=== PATIENT | female | born 1950 | race Caucasian/White ===

== ENCOUNTER 2017-10-29 23:00 | Inpatient (IN) | payer MEDICARE ==
[2017-10-29] MEDS ORDERED: SODIUM CHLORIDE 0.9% 1,000 ML IV STA (23:18)
[2017-10-29] MEDS ORDERED: cefTRIAXone IN SWFI 2,000 MG/20 ML SYRINGE IVP STA (23:18)
[2017-10-29] MEDS ORDERED: IBUPROFEN 600 MG TAB PO STA (23:18)
--- NOTE | 2017-10-29 23:53 | XR ---
EXAMINATION TYPE: XR chest 2V DATE OF EXAM: 10/29/2017 COMPARISON: 07/12/2013 HISTORY: Fever TECHNIQUE: Frontal and lateral views of the chest are obtained. FINDINGS: Heart appears enlarged. There is no heart failure. Lungs are clear of infiltrate. There is no pleural effusion. Bony thorax appears intact. IMPRESSION: Mild cardiomegaly that appears increased compared to old exam. No heart failure.
[2017-10-29 23:56] LABS: Appearance,Urine Clear (Clear); Bacteria,Urine Rare /hpf; Bilirubin,Urine Negative (Negative); Blood,Urine Small (Negative); Color,Urine Light Yellow; Glucose,Urine (UA) 3+ (Negative); Ketones,Urine Negative (Negative); Leukocyte Esterase,Urine Negative (Negative); Mucus,Urine Rare /hpf; Nitrite,Urine Negative (Negative); PH, Urine 5.5 (5.0-8.0); Protein,Urine 2+ (Negative); RBC,Urine 4 /hpf (0-5); Specific Gravity,Urine 1.006 (1.001-1.035); Squamous Epithelial Cell,Urine <1 /hpf (0-4); Urobilinogen,Urine <2.0 mg/dL (<2.0); WBC,Urine 1 /hpf (0-5)
[2017-10-30 00:04] LABS: Albumin 3.4 g/dL (3.5-5.0); Potassium 5.2 mmol/L (3.5-5.1); Total Bilirubin 0.6 mg/dL (0.2-1.3); Total Protein 6.1 g/dL (6.3-8.2)
[2017-10-30 00:09] LABS: Basophils % (A) 0 %; Eosinophils # (A) 0.2 k/uL (0-0.7); Eosinophils % (A) 2 %; HCT 29.9 % (34.0-46.0); HGB 9.5 gm/dL (11.4-16.0); Lymphocytes # (A) 1.2 k/uL (1.0-4.8); Lymphocytes % (A) 14 %; MCH 28.7 pg (25.0-35.0); MCHC 31.8 g/dL (31.0-37.0); MCV 90.5 fL (80.0-100.0); Mean Platelet Volume 6.9; Monocytes # (A) 0.6 k/uL (0-1.0); Monocytes % (A) 7 %; Neutrophils # (A) 6.6 k/uL (1.3-7.7); Neutrophils % (A) 76 %; Platelet Count 241 k/uL (150-450); WBC 8.7 k/uL (3.8-10.6)
[2017-10-30] MEDS ORDERED: SODIUM CHLORIDE 0.9% 500 ML IV ONE (00:11)
--- NOTE | 2017-10-30 00:42 | ED ---
Fever HPI - General Chief Complaint: Fever Stated Complaint: fever Time Seen by Provider: 10/29/17 23:11 Source: patient, family Mode of arrival: ambulatory Limitations: no limitations - History of Present Illness Initial Comments: 89 years O female comes in with a fever and shortness of breath some cough and pain pain quite frequently she said she been going more frequent than usual she has a history of hypertension and diabetes and a fever going on for 2 to a half days night sweats generalized weakness. Denies any headache no neck stiffness no abdominal pain no frequency urgency dysuria no symptoms of TIA or CVA - Related Data Home Medications Medication Instructions Recorded Confirmed Albuterol Inhaler [Ventolin Hfa 2 puff INHALATION DIRECTED PRN 10/28/1510/29 Inhaler] Cyanocobalamin [Vitamin B-12 1,000 mcg SQ WEEKLY 10/28/15 10/29/17 Injection] Digoxin [Lanoxin] 250 mcg PO DAILY 10/28/15 10/29/17 Ergocalciferol [Vitamin D2] 50,000 unit PO Q7D 10/28/15 10/29/17 Ferrous Sulfate [Feosol] 325 mg PO DAILY 10/28/15 10/29/17 Fluticasone/Salmeterol [Advair 1 inhalation PO DIRECTED PRN 10/28/15 10/29/17 250-50 Diskus] Levothyroxine Sodium [Synthroid] 25 mcg PO DAILY 10/28/15 10/29/17 Lisinopril [Zestril] 10 mg PO DAILY 10/28/15 10/29/17 Metoprolol Tartrate [Lopressor] 25 mg PO BID 10/28/15 10/29/17 PARoxetine [Paxil] 20 mg PO DAILY 10/28/15 10/29/17 Pilocarpine [Salagen] 5 mg PO BID 10/28/15 10/29/17 glipiZIDE [Glucotrol] 5 mg PO AC-TID 10/28/15 10/29/17 metFORMIN HCL 1,000 mg PO BID 10/28/15 10/29/17 Allergies Allergy/AdvReac Type Severity Reaction Status Date / Time Penicillins Allergy Rash/Hives Verified 10/29/17 23:08 Review of Systems ROS Statement: Those systems with pertinent positive or pertinent negative responses have been documented in the HPI. ROS Other: All systems not noted in ROS Statement are negative. Past Medical History Past Medical History: Asthma, Diabetes Mellitus, Hypertension, Mitral Valve Prolapse (MVP), Osteoarthritis (OA), Supraventricular Tachycardia (SVT), Thyroid Disorder Additional Past Medical History / Comment(s): diarrhea, anemia, sjogrens, History of Any Multi-Drug Resistant Organisms: None Reported Past Surgical History: Cholecystectomy, Heart Catheterization, Orthopedic Surgery, Tonsillectomy Additional Past Surgical History / Comment(s): rt knee surgery Past Anesthesia/Blood Transfusion Reactions: No Reported Reaction Past Psychological History: Anxiety Smoking Status: Never smoker Past Alcohol Use History: None Reported Past Drug Use History: None Reported - Past Family History Mother Family Medical History: Cancer Brother(s) Family Medical History: Pulmonary Embolus General Exam - General Exam Comments Initial Comments: General: The patient is awake and alert, in no distress does look pale and tired Skin: Skin is warm and dry and no rashes or lesions are noted. Eye: Pupils are equal, round and reactive to light, extra-ocular movements are intact; there is normal conjunctiva bilaterally. Ears, nose, mouth and throat: There are moist mucous membranes and no oral lesions. Neck: The neck is supple, there is no tenderness or JVD. Cardiovascular: There is a regular rate and rhythm. No murmur, rub or gallop is appreciated. Respiratory: To auscultation bilateral, recent crackles at the bases Gastrointestinal: Soft, non-distended, non-tender abdomen without masses or organomegaly noted. There is no rebound or guarding present. Bowel sounds are unremarkable. Back: There is no tenderness to palpation in the midline. There is no obvious deformity. Musculoskeletal: Normal ROM, no tenderness, There is no pedal edema. There is no calf tenderness or swelling. No cords were appreciated. Neurological: CN II-XII intact, Cranial nerves III through XII are intact. There are no obvious motor or sensory deficits. Coordination appears grossly intact. Speech is normal. Psychiatric: Cooperative, appropriate mood & affect, normal judgment. Limitations: no limitations Course Vital Signs 10/29/17 10/30/17 23:03 00:49 Temperature 102.3 F H 101.4 F H Pulse Rate 83 70 Respiratory 20 18 Rate Blood Pressure 182/74 178/77 O2 Sat by Pulse 95 98 Oximetry Medical Decision Making - Lab Data Result diagrams: 10/29/17 23:40 07/21/18 23:40 Lab Results 10/29/17 10/29/17 10/29/17 Range/Units 23:40 23:40 23:40 WBC 8.7 (3.8-10.6) k/uL RBC 3.30 L (3.80-5.40) m/uL Hgb 9.5 L (11.4-16.0) gm/dL Hct 29.9 L (34.0-46.0) % MCV 90.5 (80.0-100.0) fL MCH 28.7 (25.0-35.0) pg MCHC 31.8 (31.0-37.0) g/dL RDW 14.0 (11.5-15.5) % Plt Count 241 (150-450) k/uL Neutrophils % 76 % Lymphocytes % 14 % Monocytes % 7 % Eosinophils % 2 % Basophils % 0 % Neutrophils # 6.6 (1.3-7.7) k/uL Lymphocytes # 1.2 (1.0-4.8) k/uL Monocytes # 0.6 (0-1.0) k/uL Eosinophils # 0.2 (0-0.7) k/uL Basophils # 0.0 (0-0.2) k/uL Sodium 131 L (137-145) mmol/L Potassium 5.2 H (3.5-5.1) mmol/L Chloride 106 (98-107) mmol/L Carbon Dioxide 17 L (22-30) mmol/L Anion Gap 8 mmol/L BUN 18 H (7-17) mg/dL Creatinine 1.40 H (0.52-1.04) mg/dL Est GFR (CKD-EPI)AfAm 45 (>60 ml/min/1.73 sqM) Est GFR (CKD-EPI)NonAf 39 (>60 ml/min/1.73 sqM) Glucose 313 H (74-99) mg/dL Plasma Lactic Acid Jose F (0.7-2.0) mmol/L Calcium 9.0 (8.4-10.2) mg/dL Total Bilirubin 0.6 (0.2-1.3) mg/dL AST 24 (14-36) U/L ALT 25 (9-52) U/L Alkaline Phosphatase 56 (38-126) U/L Total Protein 6.1 L (6.3-8.2) g/dL Albumin 3.4 L (3.5-5.0) g/dL Urine Color Urine Appearance (Clear) Urine pH (5.0-8.0) Ur Specific [place] (1.001-1.035) Urine Protein (Negative) Urine Glucose (UA) (Negative) Urine Ketones (Negative) Urine Blood (Negative) Urine Nitrite (Negative) Urine Bilirubin (Negative) Urine Urobilinogen (<2.0) mg/dL Ur Leukocyte Esterase (Negative) Urine RBC (0-5) /hpf Urine WBC (0-5) /hpf Ur Squamous Epith Cells (0-4) /hpf Urine Bacteria (None) /hpf Urine Mucus (None) /hpf Influenza Type A RNA Not Detected (Not Detectd) Influenza Type B (PCR) Not Detected (Not Detectd) 10/29/17 10/29/17 Range/Units 23:40 23:40 WBC (3.8-10.6) k/uL RBC (3.80-5.40) m/uL Hgb (11.4-16.0) gm/dL Hct (34.0-46.0) % MCV (80.0-100.0) fL MCH (25.0-35.0) pg MCHC (31.0-37.0) g/dL RDW (11.5-15.5) % Plt Count (150-450) k/uL Neutrophils % % Lymphocytes % % Monocytes % % Eosinophils % % Basophils % % Neutrophils # (1.3-7.7) k/uL Lymphocytes # (1.0-4.8) k/uL Monocytes # (0-1.0) k/uL Eosinophils # (0-0.7) k/uL Basophils # (0-0.2) k/uL Sodium (137-145) mmol/L Potassium (3.5-5.1) mmol/L Chloride (98-107) mmol/L Carbon Dioxide (22-30) mmol/L Anion Gap mmol/L BUN (7-17) mg/dL Creatinine (0.52-1.04) mg/dL Est GFR (CKD-EPI)AfAm (>60 ml/min/1.73 sqM) Est GFR (CKD-EPI)NonAf (>60 ml/min/1.73 sqM) Glucose (74-99) mg/dL Plasma Lactic Acid Jose F 2.3 H* (0.7-2.0) mmol/L Calcium (8.4-10.2) mg/dL Total Bilirubin (0.2-1.3) mg/dL AST (14-36) U/L ALT (9-52) U/L Alkaline Phosphatase (38-126) U/L Total Protein (6.3-8.2) g/dL Albumin (3.5-5.0) g/dL Urine Color Light Yellow Urine Appearance Clear (Clear) Urine pH 5.5 (5.0-8.0) Ur Specific [place] 1.006 (1.001-1.035) Urine Protein 2+ H (Negative) Urine Glucose (UA) 3+ H (Negative) Urine Ketones Negative (Negative) Urine Blood Small H (Negative) Urine Nitrite Negative (Negative) Urine Bilirubin Negative (Negative) Urine Urobilinogen <2.0 (<2.0) mg/dL Ur Leukocyte Esterase Negative (Negative) Urine RBC 4 (0-5) /hpf Urine WBC 1 (0-5) /hpf Ur Squamous Epith Cells <1 (0-4) /hpf Urine Bacteria Rare H (None) /hpf Urine Mucus Rare H (None) /hpf Influenza Type A RNA (Not Detectd) Influenza Type B (PCR) (Not Detectd) Critical Care Time Total Critical Care Time: 30 Critical Care Time: Plan reassessment noticed quite a few subtle things she had a fever for last 2-1 /2 days she had the diaphoresis and feeling weak fever was 102.3 CBC was fine potassium is 5.2 lactate is 2.3 and sugar is above 300 and a CO2 is 17 that's sort of firm translates into metabolic acidosis and with a lactate being 2.3 also points out towards dehydration and lactic acidosis she be getting some broad-spectrum antibiotics blood cultures urine cultures sent and chest x-ray showed some cardiomegaly considering that the fluid and dehydration sugar to be a moderate right now, very aggressive monofilament pressure into congestive heart failure she be admitted under Dr. Mederos's service and she had a 2 g of Rocephin and we'll change that to Zosyn and the metabolic acidosis is a borderline him not to start her on some insulin infusion instead she be getting fluids and subcu insulin at this point clinically she looks very good at this point I don't think she needs infusion of insulin Disposition Clinical Impression: Metabolic acidosis, Hyperglycemia, Fever, Bacteremia Disposition: ADMITTED IP TO THIS [facility] Condition: Good Referrals: Zainab Zuleta DO [Primary Care Provider] - 1-2 days
[2017-10-30] MEDS ORDERED: INSULIN REGULAR 100 UNIT/ML VIAL SQ ONE (00:44)
[2017-10-30] MEDS ORDERED: ONDANSETRON 4 MG/2 ML VIAL IVP PRN (00:58)
[2017-10-30] MEDS ORDERED: NALOXONE 0.4 MG/ML 1 ML VIAL IV PRN (00:58)
[2017-10-30] MEDS ORDERED: ALBUTEROL NEBULIZED 2.5 MG/3 ML INHALATION PRN ×2 (01:02→13:01)
[2017-10-30] MEDS ORDERED: SYMBICORT 80-4.5 MCG INHALER INHALATION PRN (01:02)
[2017-10-30] MEDS ORDERED: LEVOFLOXACIN 500 MG TAB PO STA (01:04)
[2017-10-30 01:09] LABS: Glucose,Whole Blood 251 mg/dL (75-99)
[2017-10-30] MEDS: SODIUM CHLORIDE 0.9% 1,000 ML IV SCH ×4 (01:13→23:08)
[2017-10-30 01:26] LABS: VBG PH 7.27 (7.31-7.41)
[2017-10-30 04:19] VITALS: BMI 38.6
[2017-10-30] MEDS: LEVOTHYROXINE 25 MCG TAB PO SCH (05:44)
[2017-10-30 07:43] LABS: Glucose,Whole Blood 99 mg/dL (75-99)
[2017-10-30] MEDS: PARoxetine 20 MG TAB PO SCH (08:28)
[2017-10-30] MEDS: DIGOXIN 250 MCG TAB PO SCH (08:28)
[2017-10-30] MEDS: glipiZIDE 5 MG TAB PO SCH ×2 (08:29→12:44)
[2017-10-30] MEDS: METOPROLOL TARTRATE 25 MG TAB PO SCH ×2 (08:29→21:28)
[2017-10-30] MEDS ORDERED: FERROUS SULFATE 325 MG TAB PO SCH (09:00)
[2017-10-30] MEDS ORDERED: LISINOPRIL 10 MG TAB PO SCH (09:00)
[2017-10-30] MEDS ORDERED: PILOCARPINE 5 MG TAB PO SCH (09:00)
[2017-10-30] MEDS ORDERED: metFORMIN 500 MG TAB PO SCH (09:00)
--- NOTE | 2017-10-30 10:09 | P.HPIM ---
History of Present Illness H&P Date: 10/30/17 Chief Complaint: Febrile illness Amelia Underwood is a 67-year-old female patient of Dr. Zainab Zuleta who presented to [facility] emergency room with a 2 day history of elevated temperature, with generalized weakness and sweating, patient states that 2 days prior to presentation she had a temperature up to 103 she took Tylenol at home and had improvement in her condition, however fever recurred and patient was having generalized weakness and sweating, no other localized symptoms, no cough or shortness of breath, no burning was urination no frequency or urgency, no hematuria, and no abdominal pain no vomiting and no diarrhea. She was evaluated in the emergency room, temperature on presentation was 102.3 white blood count was normal at 8.7 chest x-ray did not reveal any evidence of acute infiltrate, urine analysis revealed 1 white blood cell with rare bacteria and urine mucus. She was started on IV antibiotic Rocephin and Levaquin and was admitted to medical floor. On presentation to emergency room patient had metabolic acidosis was pH of 7.27. Patient was seen and examined on the fifth floor she is alert and oriented 3 she is feeling tired but denies any specific symptoms at this time, temperature is down to 98.5 she denies any cough or shortness of breath she denies any chest pain no headache no dizziness no stiff neck no nausea or vomiting no abdominal pain, she is having frequency was urination but no burning with urination and no urgency, she denies any diarrhea, she is complaining of left knee pain, denies any skin ulcers anywhere on her body. Past medical history significant for #1 history of osteoarthritis with severe left knee involvement #2 history of diabetes mellitus type 2 #3 history of myelodysplasia followed by Dr. Ayoub, she has blood test every 3 months and has not required transfusion so far per patient #4 history of hypothyroidism #5 history of hypertension #6 history of mitral valve prolapse #7 history of aortic valve stenosis patient is followed by cardiology and sees Dr. Lira #8 history of depression maintained on Paxil Past surgical history: Significant for tonsillectomy and right knee surgery in the remote past Social history: Patient lives at home she is able to ambulate and take care of her daily needs, she does not smoke or drink alcohol or use any kind of illicit drugs. Past Medical History Past Medical History: Asthma, Diabetes Mellitus, Hypertension, Mitral Valve Prolapse (MVP), Osteoarthritis (OA), Supraventricular Tachycardia (SVT), Thyroid Disorder Additional Past Medical History / Comment(s): diarrhea, anemia, sjogrens, History of Any Multi-Drug Resistant Organisms: None Reported Past Surgical History: Cholecystectomy, Heart Catheterization, Orthopedic Surgery, Tonsillectomy Additional Past Surgical History / Comment(s): rt knee surgery Past Anesthesia/Blood Transfusion Reactions: No Reported Reaction Smoking Status: Never smoker - Past Family History Mother Family Medical History: Cancer Brother(s) Family Medical History: Pulmonary Embolus Medications and Allergies Home Medications Medication Instructions Recorded Confirmed Type Albuterol Inhaler [Ventolin Hfa 2 puff INHALATION DIRECTED PRN 10/28/1510/29 History Inhaler] Cyanocobalamin [Vitamin B-12 1,000 mcg SQ WEEKLY 10/28/15 10/29/17 History Injection] Digoxin [Lanoxin] 250 mcg PO DAILY 10/28/15 10/29/17 History Ergocalciferol [Vitamin D2] 50,000 unit PO Q7D 10/28/15 10/29/17 History Ferrous Sulfate [Feosol] 325 mg PO DAILY 10/28/15 10/29/17 History Fluticasone/Salmeterol [Advair 1 inhalation PO DIRECTED PRN 10/28/15 History 250-50 Diskus] Levothyroxine Sodium [Synthroid] 25 mcg PO DAILY 10/28/15 10/29/17 History Lisinopril [Zestril] 10 mg PO DAILY 10/28/15 10/29/17 History Metoprolol Tartrate [Lopressor] 25 mg PO BID 10/28/15 10/29/17 History PARoxetine [Paxil] 20 mg PO DAILY 10/28/15 10/29/17 History Pilocarpine [Salagen] 5 mg PO BID 10/28/15 10/29/17 History glipiZIDE [Glucotrol] 5 mg PO AC-TID 10/28/15 10/29/17 History metFORMIN HCL 1,000 mg PO BID 10/28/15 10/29/17 History Allergies Allergy/AdvReac Type Severity Reaction Status Date / Time Penicillins Allergy Rash/Hives Verified 10/29/17 23:08 Physical Exam Vitals: Vital Signs Temp Pulse Pulse Resp BP BP Pulse Ox 10/30/17 08:54 90 10/30/17 08:44 88 10/30/17 06:08 98.5 F 71 20 176/79 97 10/30/17 02:03 100.5 F H 73 18 166/81 96 10/30/17 00:49 101.4 F H 70 18 178/77 98 10/29/17 23:03 102.3 F H 83 20 182/74 95 Intake and Output 10/29/17 10/30/17 10/30/17 22:59 06:59 14:59 Other: # Voids 2 Weight 102.058 kg HEENT head normocephalic and atraumatic Neck is supple no JVD no goiter no lymphadenopathy Chest exam reveals a few scattered rhonchi no wheezing Cardiac exam reveals regular heart sounds S1 and S2 no gallops, with 2/6 systolic murmur best heard in the right base Abdomen is soft nontender no organomegaly with normal bowel sounds Extremity exam reveals no edema no cyanosis or clubbing Neurological examination reveals no gross focal deficits Results CBC & Chem 7: 10/29/17 23:40 10/29/17 23:40 Labs: Abnormal Lab Results - Last 24 Hours (Table) 10/29/17 10/29/17 10/29/17 Range/Units 23:40 23:40 23:40 RBC 3.30 L (3.80-5.40) m/uL Hgb 9.5 L (11.4-16.0) gm/dL Hct 29.9 L (34.0-46.0) % VBG pH (7.31-7.41) VBG HCO3 (24-28) mmol/L Sodium 131 L (137-145) mmol/L Potassium 5.2 H (3.5-5.1) mmol/L Carbon Dioxide 17 L (22-30) mmol/L BUN 18 H (7-17) mg/dL Creatinine 1.40 H (0.52-1.04) mg/dL Glucose 313 H (74-99) mg/dL POC Glucose (mg/dL) (75-99) mg/dL Plasma Lactic Acid Jose F 2.3 H* (0.7-2.0) mmol/L Total Protein 6.1 L (6.3-8.2) g/dL Albumin 3.4 L (3.5-5.0) g/dL Urine Protein (Negative) Urine Glucose (UA) (Negative) Urine Blood (Negative) Urine Bacteria (None) /hpf Urine Mucus (None) /hpf 10/29/17 10/30/17 10/30/17 Range/Units 23:40 01:06 01:17 RBC (3.80-5.40) m/uL Hgb (11.4-16.0) gm/dL Hct (34.0-46.0) % VBG pH (7.31-7.41) VBG HCO3 (24-28) mmol/L Sodium (137-145) mmol/L Potassium (3.5-5.1) mmol/L Carbon Dioxide (22-30) mmol/L BUN (7-17) mg/dL Creatinine (0.52-1.04) mg/dL Glucose (74-99) mg/dL POC Glucose (mg/dL) 251 H (75-99) mg/dL Plasma Lactic Acid Jose F 2.2 H* (0.7-2.0) mmol/L Total Protein (6.3-8.2) g/dL Albumin (3.5-5.0) g/dL Urine Protein 2+ H (Negative) Urine Glucose (UA) 3+ H (Negative) Urine Blood Small H (Negative) Urine Bacteria Rare H (None) /hpf Urine Mucus Rare H (None) /hpf 10/30/17 10/30/17 Range/Units 01:17 03:18 RBC (3.80-5.40) m/uL Hgb (11.4-16.0) gm/dL Hct (34.0-46.0) % VBG pH 7.27 L (7.31-7.41) VBG HCO3 18 L (24-28) mmol/L Sodium (137-145) mmol/L Potassium (3.5-5.1) mmol/L Carbon Dioxide (22-30) mmol/L BUN (7-17) mg/dL Creatinine (0.52-1.04) mg/dL Glucose (74-99) mg/dL POC Glucose (mg/dL) (75-99) mg/dL Plasma Lactic Acid Jose F 2.2 H* (0.7-2.0) mmol/L Total Protein (6.3-8.2) g/dL Albumin (3.5-5.0) g/dL Urine Protein (Negative) Urine Glucose (UA) (Negative) Urine Blood (Negative) Urine Bacteria (None) /hpf Urine Mucus (None) /hpf Thrombosis Risk Factor Assmnt - Choose All That Apply Any of the Below Risk Factors Present?: Yes Each Factor Represents 1 point: Obesity (BMI >25) Other Risk Factors: Yes Each Risk Factor Represents 2 Points: Age 61-74 years Thrombosis Risk Factor Assessment Total Risk Factor Score: 3 Thrombosis Risk Factor Assessment Level: Moderate Risk Assessment and Plan Plan: #1 febrile illness was possible sepsis, blood culture and urine culture were done, patient was started on IV Rocephin and IV Levaquin will continue at this time, awaiting culture results, will consult Dr. Merritt infectious disease. Will check echocardiogram to rule out vegetation in [place] of her known valvular heart disease. #2 underlying history of diabetes mellitus, will continue with glipizide, which was hold metformin at this time, will check hemoglobin A1c, will cover with NovoLog sliding scale. #3 sepsis with elevated temperature and elevated lactic acid received IV fluid Will continue with normal saline at 100 mL an hour #4 underlying history of hypertension maintained on lisinopril and metoprolol, blood pressure was significantly elevated on presentation will monitor and adjust medications if needed #5 underlying history of myelodysplasia, followed by Dr Ayoub #6 underlying history of hypothyroidism maintained on Synthroid 25 g daily Will check TSH #7 underlying history of depression maintained on Paxil will continue #8 metabolic acidosis on presentation will recheck arterial blood gas and monitor closely For GI prophylaxis patient will be given Protonix for DVT prophylaxis she will receive subcu Lovenox
[2017-10-30 10:27] LABS: Basophils % (A) 0 %; Eosinophils # (A) 0.1 k/uL (0-0.7); Eosinophils % (A) 2 %; HCT 28.8 % (34.0-46.0); HGB 9.3 gm/dL (11.4-16.0); Hypochromasia Slight; Lymphocytes # (A) 0.9 k/uL (1.0-4.8); Lymphocytes % (A) 11 %; MCH 29.5 pg (25.0-35.0); MCHC 32.1 g/dL (31.0-37.0); MCV 91.8 fL (80.0-100.0); Mean Platelet Volume 6.6; Monocytes # (A) 0.5 k/uL (0-1.0); Monocytes % (A) 6 %; Neutrophils # (A) 6.4 k/uL (1.3-7.7); Neutrophils % (A) 79 %; Platelet Count 234 k/uL (150-450); RBC 3.14 m/uL (3.80-5.40)
[2017-10-30 10:49] LABS: Albumin 3.1 g/dL (3.5-5.0); Calcium 8.7 mg/dL (8.4-10.2); Potassium 4.9 mmol/L (3.5-5.1); Total Bilirubin 0.6 mg/dL (0.2-1.3); Total Protein 5.5 g/dL (6.3-8.2)
[2017-10-30] MEDS ORDERED: cefTRIAXone IN SWFI 1,000 MG/10 ML SYRINGE IVP SCH (11:00)
[2017-10-30] MEDS: ENOXAPARIN 40 MG/0.4 ML SYRINGE SQ SCH (11:16)
[2017-10-30] MEDS: ACETAMINOPHEN TAB 325 MG TAB PO PRN (11:21)
[2017-10-30 12:24] LABS: Glucose,Whole Blood 212 mg/dL (75-99)
[2017-10-30 12:47] LABS: ABG Base Excess -6.6 mmol/L; ABG HCO3 19 mmol/L (21-25); ABG Oxygen Saturation 96.5 % (94-97); ABG PCO2 33 mmHg (35-45); ABG PH 7.36 (7.35-7.45); ABG PO2 76 mmHg (83-108); ABG TCO2 20 mmol/L (19-24)
[2017-10-30] MEDS ORDERED: IBUPROFEN 600 MG TAB PO PRN (13:11)
[2017-10-30] MEDS: INSULIN ASPART 100 UNIT/ML 1 ML 10 ML VIAL SQ SCH ×3 (13:13→21:25)
[2017-10-30] MEDS ORDERED: INSULIN ASPART 100 UNIT/ML 1 ML 10 ML VIAL SQ SCH (17:30)
[2017-10-30 17:34] LABS: Glucose,Whole Blood 150 mg/dL (75-99)
--- NOTE | 2017-10-30 20:01 | CONS ---
CONSULTATION DATE OF SERVICE: 10/30/2017. REASON FOR CONSULTATION: Fever and possible pneumonia. HISTORY OF PRESENT ILLNESS: The patient is a 67-year-old female with a past medical history significant for asthma, presenting to the ER at [facility] last night with chief complaints of fever x2 days. The symptoms started the patient says she went to bed on night and she was doing okay. However around 3 in the morning on Tuesday. She started having a fever with rigors and chills, temperature 103 degrees Fahrenheit. The patient said she took some Tylenol and took a cold shower to break the fever. She lied down the whole day not doing anything. However, the fever persisted the next day. The patient has been complaining of mild cough with some thick sputum for the same duration. The patient denies having any headache or any URI symptoms. Minimal shortness of breath. The patient denies any abdominal pain and no diarrhea. With these symptoms, the patient has been evaluated by the ER physician. On arrival to the ER, the patient did have fever of 102.3 degrees Fahrenheit. The patient's white count has been normal. Liver enzymes are normal. Lactic acid slightly elevated 2.2. Urine has been negative. Influenza serology was negative. The patient did have a chest x- ray, mild cardiomegaly to oral exam. Lungs were clear of infiltrate. The patient has been treated with Rocephin and Levaquin. Infectious disease was consulted for further recommendations regarding antibiotic therapy. REVIEW OF SYSTEMS: Constitutional: Positive for weakness along with the fever. Eyes: No complaint. ENT no complaint. Respiratory as per HPI. Cardiovascular: No complaint. Genitourinary no complaint. Gastrointestinal: No complaint. Musculoskeletal: Pain to the left knee area, but no redness. INTEGUMENT: No complaint. Psychological no complaint. Endocrine no complaint. Neurologic no complaint. PAST MEDICAL HISTORY: Significant for diabetes mellitus type 2, myelodysplasia, hypothyroidism, hypertension, mitral valve prolapse, aortic valve stenosis, depression. PAST SURGICAL HISTORY: Tonsillectomy and right knee surgery. SOCIAL HISTORY: The patient denies smoking, drinking or drug use. FAMILY HISTORY: Mother with history of cancer. Father history of pulmonary embolism. ALLERGIES: PENICILLIN with a rash, however, tolerated Rocephin without any problem. MEDICATION: Currently includes the patient is on Paxil, Protonix, Zofran, Narcan, Lopressor, Zestril, Synthroid, Levaquin, NovoLog, Motrin, Glucotrol, Lovenox, Rocephin 1 g q.12, Symbicort, Tylenol. EXAMINATION: Blood pressure 176/79 with a pulse of 71, temperature is 98.5, she is 97% on room air. General description is an elderly female, lying in bed in no distress. No tachypnea or accessory muscles of respiration use. HEENT: Examination shows no pallor or scleral icterus. Oral mucosa membranes dry. No pharyngeal erythema or thrush. Neck: Trachea central. No thyromegaly. Lungs unlabored breathing with decreased breath sounds. No wheeze. Heart S1, S2 regular rate and rhythm. ABDOMEN: Soft, no tenderness. No guarding or rigidity. Extremities trace edema of the feet. No cellulitis. Musculoskeletal system: Left knee currently with no swelling or redness, only warm to touch. Neurological: Patient is awake, alert, oriented times three. Mood and affect normal. LABS: Influenza serology was negative. Hemoglobin 9.8, white count 8.0, BUN of 15, hematocrit 1.2, electrolytes have been normal. Liver enzymes are normal. Lactic acid is slightly elevated. Urine is negative. DIAGNOSTIC IMPRESSION AND PLAN: Patient admitted to the hospital with a fever, rigors and chills. The patient does have a cough and bringing up some thick sputum with question of early pneumonia not entirely excluded with initial x-ray reported to be negative. UA is negative. No evidence of any cellulitis. Abdomen soft on clinical examination. PLAN: 1. We will try to obtain sputum for Gram stain culture and sensitivity. 2. Await the repeat x-ray be ordered for tomorrow morning. 3. We will keep the patient on Rocephin however change the dose to 1 g daily and continue Levaquin. 4. We will follow her clinical condition and culture to further adjust medication if needed. Thank you for this consultation. We will follow this patient along with you. MMSORENL / VARGHESEN: [id number] /
[2017-10-30 20:14] LABS: Glucose,Whole Blood 175 mg/dL (75-99)
[2017-10-30] MEDS ORDERED: LEVOFLOXACIN 500MG-D5W PMX 500 MG in DEXTROSE/WATER 1 100ML.BAG IVPB SCH (21:00)
[2017-10-30] MEDS: PILOCARPINE 5 MG TAB PO SCH (21:28)
[2017-10-30] MEDS ORDERED: amLODIPine 5 MG TAB PO STA (21:46)
[2017-10-31] MEDS: LEVOTHYROXINE 25 MCG TAB PO SCH (06:23)
[2017-10-31 06:55] LABS: Glucose,Whole Blood 128 mg/dL (75-99)
[2017-10-31 07:21] LABS: Basophils % (A) 0 %; Eosinophils # (A) 0.2 k/uL (0-0.7); Eosinophils % (A) 3 %; HGB 9.1 gm/dL (11.4-16.0); Lymphocytes # (A) 1.5 k/uL (1.0-4.8); Lymphocytes % (A) 17 %; MCH 29.3 pg (25.0-35.0); MCHC 32.5 g/dL (31.0-37.0); MCV 90.2 fL (80.0-100.0); Mean Platelet Volume 6.6; Monocytes # (A) 0.6 k/uL (0-1.0); Monocytes % (A) 7 %; Neutrophils # (A) 6.4 k/uL (1.3-7.7); Neutrophils % (A) 72 %; Platelet Count 244 k/uL (150-450); RBC 3.11 m/uL (3.80-5.40); WBC 8.9 k/uL (3.8-10.6)
[2017-10-31] MEDS: INSULIN ASPART 100 UNIT/ML 1 ML 10 ML VIAL SQ SCH ×4 (07:27→21:15)
[2017-10-31 07:36] LABS: Albumin 3.1 g/dL (3.5-5.0); Calcium 9.1 mg/dL (8.4-10.2); Potassium 4.5 mmol/L (3.5-5.1); Total Bilirubin 0.8 mg/dL (0.2-1.3); Total Protein 5.8 g/dL (6.3-8.2)
[2017-10-31] MEDS: METOPROLOL TARTRATE 25 MG TAB PO SCH ×2 (08:08→21:16)
[2017-10-31] MEDS: ENOXAPARIN 40 MG/0.4 ML SYRINGE SQ SCH (08:08)
[2017-10-31] MEDS: LISINOPRIL 20 MG TAB PO SCH (08:08)
[2017-10-31] MEDS: amLODIPine 5 MG TAB PO SCH (08:08)
[2017-10-31] MEDS: PANTOPRAZOLE 40 MG TABLET PO SCH (08:08)
[2017-10-31] MEDS: PILOCARPINE 5 MG TAB PO SCH ×2 (08:08→21:16)
[2017-10-31] MEDS: DIGOXIN 250 MCG TAB PO SCH (08:08)
[2017-10-31] MEDS: glipiZIDE 10 MG TAB PO SCH (08:08)
[2017-10-31] MEDS: PARoxetine 20 MG TAB PO SCH (08:09)
--- NOTE | 2017-10-31 08:41 | XR ---
EXAMINATION TYPE: XR chest 2V DATE OF EXAM: 10/31/2017 COMPARISON: 10/29/2017 TECHNIQUE: PA and lateral views submitted. HISTORY: Fever FINDINGS: The lungs are clear and there is no pneumothorax, pleural effusion, or focal pneumonia. Stable card iomegaly. Surgical clips in the abdomen noted. Degenerative change spine IMPRESSION: 1. No acute process.
[2017-10-31 10:53] LABS: Hemoglobin A1C 10.2 % (4.0-6.0)
--- NOTE | 2017-10-31 11:00 | ECHOF ---
Referral Reason:fever MEASUREMENTS -------- HEIGHT: 162.6 cm WEIGHT: 102.1 kg BP: 146/79 RVIDd: 3.2 cm (< 3.3) IVSd: 1.4 cm (0.6 - 1.1) LVIDd: 4.5 cm (3.9 - 5.3) LVPWd: 1.3 cm (0.6 - 1.1) IVSs: 1.7 cm LVIDs: 2.9 cm LVPWs: 1.6 cm LA Diam: 4.2 cm (2.7 - 3.8) LAESV Index (A-L): 35.22 ml/m Ao Diam: 2.8 cm (2.0 - 3.7) AV Cusp: 1.8 cm (1.5 - 2.6) LA Diam: 4.4 cm (2.7 - 3.8) MV EXCURSION: 12.148 mm (> 18.000) MV EF SLOPE: 44 mm/s (70 - 150) EPSS: 0.1 cm MV E Hector: 0.79 m/s MV DecT: 289 ms MV A Hector: 1.54 m/s MV E/A Ratio: 0.51 AV maxP.76 mmHg AV meanP.97 mmHg RAP: 5.00 mmHg RVSP: 29.15 mmHg FINDINGS -------- Sinus rhythm. This was a technically adequate study. The left ventricular size is normal. There is moderate concentric left ventricular hypertrophy. O verall left ventricular systolic function is low-normal with, an EF between 50 - 55 %. The right ventricle is normal in size. The left atrial size is normal. The right atrial size is normal. There is moderate aortic stenosis present. Peak/mean gradient across the Aortic Valve is 45.76mmHg / 26.97mmHg. Mild mitral annular calcification present. Mild mitral regurgitation is present. Mild tricuspid regurgitation present. There is no evidence of pulmonary hypertension. The right v entricular systolic pressure, as measured by Doppler, is 29.15mmHg. There is no pulmonic regurgitation present. The aortic root size is normal. There is no pericardial effusion. CONCLUSIONS -------- 1. The left ventricular size is normal. 2. There is moderate concentric left ventricular hypertrophy. 3. Overall left ventricular systolic function is low-normal with, an EF between 50 - 55 %. 4. The right ventricle is normal in size. 5. The left atrial size is normal. 6. The right atrial size is normal. 7. There is moderate aortic stenosis present. 8. Peak/mean gradient across the Aortic Valve is 45.76mmHg / 26.97mmHg. 9. Mild mitral annular calcification present. 10. Mild mitral regurgitation is present. 11. Mild tricuspid regurgitation present. 12. There is no evidence of pulmonary hypertension. 13. The right ventricular systolic pressure, as measured by Doppler, is 29.15mmHg. 14. There is no pulmonic regurgitation present. 15. The aortic root size is normal. 16. There is no pericardial effusion. 17. Echodense lesion on posterior leafleflet - exact nature un clear RECREATION SUPERVISOR: Lorelei Wolfe RDCS
--- NOTE | 2017-10-31 11:19 | P.PN ---
Subjective Progress Note Date: 10/31/17 Amelia Underwood is a 67-year-old female patient of Dr. Zainab Zuleta who presented to [facility] emergency room with a 2 day history of elevated temperature, with generalized weakness and sweating, patient states that 2 days prior to presentation she had a temperature up to 103 she took Tylenol at home and had improvement in her condition, however fever recurred and patient was having generalized weakness and sweating, no other localized symptoms, no cough or shortness of breath, no burning was urination no frequency or urgency, no hematuria, and no abdominal pain no vomiting and no diarrhea. She was evaluated in the emergency room, temperature on presentation was 102.3 white blood count was normal at 8.7 chest x-ray did not reveal any evidence of acute infiltrate, urine analysis revealed 1 white blood cell with rare bacteria and urine mucus. She was started on IV antibiotic Rocephin and Levaquin and was admitted to medical floor. On presentation to emergency room patient had metabolic acidosis was pH of 7.27. Patient was seen and examined on the fifth floor she is alert and oriented 3 she is feeling tired but denies any specific symptoms at this time, temperature is down to 98.5 she denies any cough or shortness of breath she denies any chest pain no headache no dizziness no stiff neck no nausea or vomiting no abdominal pain, she is having frequency was urination but no burning with urination and no urgency, she denies any diarrhea, she is complaining of left knee pain, denies any skin ulcers anywhere on her body. On 10/31/2017 Patient currently resting in bed. Patient does reports she is feeling better than she did yesterday because she has been able to get some sleep. Patient still having low-grade temperatures 99 F. patient's blood pressure improving now 146/79. Norvasc was added. 2-D echo was completed EF 55 -55%. Chest x-ray completed per Dr. Merritt showing no acute process. Per infectious disease will continue Rocephin 1 g daily and Levaquin. Orders for sputum culture and sensitivity has been ordered. Patient denies chest pain or shortness of breath at this time. Denies nausea vomiting or diarrhea. Denies urinary symptoms. Objective - Vital Signs Vital signs: Vital Signs Temp 98.4 F 10/31/17 06:08 Pulse 67 10/31/17 06:08 Resp 16 10/31/17 06:08 BP 146/79 10/31/17 06:08 Pulse Ox 94 L 10/31/17 06:08 Intake & Output 10/30/17 10/31/17 10/31/17 18:59 06:59 18:59 Intake Total 700 480 Balance 700 480 Intake: Intake, IV Titration 700 Amount Sodium Chloride 0.9% 1, 700 000 ml @ 100 mls/hr IV . Q10H BRANDAN Rx#:[id number] Oral 480 Other: Voiding Method Toilet Toilet # Voids 3 - Exam Head normocephalic Neck supple Lungs a few scattered rhonchi and wheezing Heart regular rate and rhythm S1-S2, no rub or gallop Abdomen is soft nontender nondistended positive bowel sounds no hepatosplenomegaly Extremities no edema Neuro alert and orientated to 3 - Labs CBC & Chem 7: 10/31/17 06:50 10/31/17 06:50 Labs: Abnormal Lab Results - Last 24 Hours (Table) 10/30/17 10/30/17 10/30/17 Range/Units 12:23 12:41 17:33 RBC (3.80-5.40) m/uL Hgb (11.4-16.0) gm/dL Hct (34.0-46.0) % ABG pCO2 33 L (35-45) mmHg ABG pO2 76 L (83-108) mmHg ABG HCO3 19 L (21-25) mmol/L Sodium (137-145) mmol/L Chloride (98-107) mmol/L Carbon Dioxide (22-30) mmol/L Creatinine (0.52-1.04) mg/dL Glucose (74-99) mg/dL POC Glucose (mg/dL) 212 H 150 H (75-99) mg/dL Total Protein (6.3-8.2) g/dL Albumin (3.5-5.0) g/dL 10/30/17 10/31/17 10/31/17 Range/Units 20:12 06:50 06:50 RBC 3.11 L (3.80-5.40) m/uL Hgb 9.1 L (11.4-16.0) gm/dL Hct 28.0 L (34.0-46.0) % ABG pCO2 (35-45) mmHg ABG pO2 (83-108) mmHg ABG HCO3 (21-25) mmol/L Sodium 136 L (137-145) mmol/L Chloride 109 H (98-107) mmol/L Carbon Dioxide 20 L (22-30) mmol/L Creatinine 1.30 H (0.52-1.04) mg/dL Glucose 119 H (74-99) mg/dL POC Glucose (mg/dL) 175 H (75-99) mg/dL Total Protein 5.8 L (6.3-8.2) g/dL Albumin 3.1 L (3.5-5.0) g/dL 10/31/17 Range/Units 06:54 RBC (3.80-5.40) m/uL Hgb (11.4-16.0) gm/dL Hct (34.0-46.0) % ABG pCO2 (35-45) mmHg ABG pO2 (83-108) mmHg ABG HCO3 (21-25) mmol/L Sodium (137-145) mmol/L Chloride (98-107) mmol/L Carbon Dioxide (22-30) mmol/L Creatinine (0.52-1.04) mg/dL Glucose (74-99) mg/dL POC Glucose (mg/dL) 128 H (75-99) mg/dL Total Protein (6.3-8.2) g/dL Albumin (3.5-5.0) g/dL Microbiology - Last 24 Hours (Table) 10/30/17 12:25 Urine Culture - Final Urine,Voided 10/29/17 23:40 Blood Culture - Preliminary Blood No Growth after 24 hours Assessment and Plan Assessment: #1 febrile illness was possible sepsis, blood culture and urine culture were done, patient was started on IV Rocephin and IV Levaquin will continue at this time, awaiting culture results, will consult Dr. Merritt infectious disease. 2-D echo completed showing EF50- 55%. Sputum and chest x-ray have been ordered per Dr. Merritt. Chest x-ray showing no acute process at this time. Blood and urine cultures have been ordered and currently showing no growth. Patient on 1 g Rocephin every 24 hours and Levaquin per infectious disease. #2 underlying history of diabetes mellitus, will continue with glipizide, which was hold metformin at this time, will check hemoglobin A1c, will cover with NovoLog sliding scale. #3 sepsis with elevated temperature and elevated lactic acid received IV fluid Will continue with normal saline at 100 mL an hour #4 underlying history of hypertension maintained on lisinopril and metoprolol, blood pressure was significantly elevated on presentation will monitor and adjust medications if needed. Norvasc 5 mg have been added blood pressure improving. #5 underlying history of myelodysplasia, followed by Dr Ayoub #6 underlying history of hypothyroidism maintained on Synthroid 25 g daily. TSH 3.5 #7 underlying history of depression maintained on Paxil will continue #8 metabolic acidosis on presentation will recheck arterial blood gas and monitor closely. PH improving 7.36 For GI prophylaxis patient will be given Protonix for DVT prophylaxis she will receive subcu Lovenox I performed an examination of the patient and discussed their management with the Nurse Practitioner. I have reviewed the Nurse Practitioner's notes and agree with the documented findings and plan of care
[2017-10-31] MEDS: cefTRIAXone IN SWFI 1,000 MG/10 ML SYRINGE IVP SCH (11:27)
[2017-10-31 11:39] LABS: Glucose,Whole Blood 156 mg/dL (75-99)
[2017-10-31] MEDS: ACETAMINOPHEN TAB 325 MG TAB PO PRN (16:27)
[2017-10-31 16:39] LABS: Glucose,Whole Blood 223 mg/dL (75-99)
[2017-10-31 20:12] LABS: Glucose,Whole Blood 248 mg/dL (75-99)
[2017-10-31] MEDS: SODIUM CHLORIDE 0.9% 1,000 ML IV SCH (21:17)
--- NOTE | 2017-11-01 00:22 | PN ---
PROGRESS NOTE DATE OF SERVICE: 10/31/2017. REASON FOR FOLLOWUP: Fever and question of possible pneumonia. INTERVAL HISTORY: The patient overall fever pattern has improved. She has seemed to be breathing comfortably. Did have very minimal cough with occasional sputum. No chest pain. No abdominal pain and no diarrhea. EXAMINATION: Blood pressure 142/52 with pulse 80, temperature 97.7, she is 93% on room air. General description is an elderly female up in the bed in no distress. Respiratory system: Unlabored breathing, decreased no wheeze. Heart S1, S2. Regular rate and rhythm. Abdomen soft, no tenderness. LABS: BUN 15, creatinine 1.30 with hemoglobin 9.1, white count of 8.9. Blood cultures negative. Chest x-ray was repeated, did not show any acute . DIAGNOSTIC IMPRESSION AND PLAN: Patient admitted to the hospital with fever with concern for possible pneumonia with fever, cough and sputum production. However, x-ray coming back to be negative with question of possible tracheobronchitis, clinical pneumonia. The patient's fever responded to Rocephin and Levaquin. Plan to finish therapy with oral antibiotics. Continue supportive care. MMODL / IJN: [id number] /
[2017-11-01] MEDS: LEVOFLOXACIN 250 MG TAB PO SCH ×2 (00:39→20:06)
[2017-11-01] MEDS: ACETAMINOPHEN TAB 325 MG TAB PO PRN ×3 (02:37→23:01)
[2017-11-01 06:54] LABS: Glucose,Whole Blood 138 mg/dL (75-99)
[2017-11-01] MEDS: LEVOTHYROXINE 25 MCG TAB PO SCH (07:17)
[2017-11-01] MEDS: INSULIN ASPART 100 UNIT/ML 1 ML 10 ML VIAL SQ SCH ×4 (08:19→21:33)
[2017-11-01 08:22] LABS: Basophils % (A) 0 %; Eosinophils # (A) 0.3 k/uL (0-0.7); Eosinophils % (A) 4 %; HCT 28.3 % (34.0-46.0); Lymphocytes # (A) 1.3 k/uL (1.0-4.8); Lymphocytes % (A) 18 %; MCH 29.2 pg (25.0-35.0); MCHC 31.9 g/dL (31.0-37.0); MCV 91.4 fL (80.0-100.0); Mean Platelet Volume 6.5; Monocytes # (A) 0.4 k/uL (0-1.0); Monocytes % (A) 5 %; Neutrophils # (A) 5.3 k/uL (1.3-7.7); Neutrophils % (A) 71 %; Platelet Count 260 k/uL (150-450); RDW 14.2 % (11.5-15.5); WBC 7.5 k/uL (3.8-10.6)
[2017-11-01] MEDS: ENOXAPARIN 40 MG/0.4 ML SYRINGE SQ SCH (08:40)
[2017-11-01] MEDS: METOPROLOL TARTRATE 25 MG TAB PO SCH ×3 (08:41→20:07)
[2017-11-01] MEDS: DIGOXIN 250 MCG TAB PO SCH (08:41)
[2017-11-01] MEDS: amLODIPine 5 MG TAB PO SCH (08:41)
[2017-11-01] MEDS: LISINOPRIL 20 MG TAB PO SCH (08:41)
[2017-11-01] MEDS: PANTOPRAZOLE 40 MG TABLET PO SCH (08:41)
[2017-11-01] MEDS: glipiZIDE 10 MG TAB PO SCH (08:41)
[2017-11-01] MEDS: PILOCARPINE 5 MG TAB PO SCH ×2 (08:41→20:06)
[2017-11-01] MEDS: PARoxetine 20 MG TAB PO SCH (08:42)
[2017-11-01 08:45] LABS: Albumin 3.1 g/dL (3.5-5.0); Calcium 9.2 mg/dL (8.4-10.2); Potassium 4.4 mmol/L (3.5-5.1); Total Bilirubin 0.7 mg/dL (0.2-1.3); Total Protein 5.7 g/dL (6.3-8.2)
[2017-11-01] MEDS ORDERED: ERGOCALCIFEROL 50,000 UNIT CAP PO SCH (09:00)
[2017-11-01 11:27] LABS: Glucose,Whole Blood 169 mg/dL (75-99)
[2017-11-01] MEDS: cefTRIAXone IN SWFI 1,000 MG/10 ML SYRINGE IVP SCH (12:03)
--- NOTE | 2017-11-01 14:31 | P.CRDCN ---
History of Present Illness History of present illness: Mrs. Underwood is a pleasant 67-year-old female past medical history significant for paroxysmal SVT, diabetes mellitus, mitral valve prolapse, hypertension, hypothyroidism, asthma, obesity and anxiety. She follows with Dr. Lira in the office. We have been asked to see her in consultation for request of a RACHEL. She presented to the hospital 2 days ago with symptoms of cough, shortness of breath and fever of 102.3F. A source has yet to be found. Echocardiogram obtained revealed preserved left ventricular systolic function with ejection fraction 50-55%, moderate aortic stenosis with a mean gradient of 26.97 mmHg, mild MR, mild TR and evidence of an echodense lesion on the posterior leaflet. At the time of my exam she is seen sitting up in bed. She denies symptoms of chest pain, shortness of breath, dizziness, nausea, vomiting or palpitations. EKG reveals sinus mechanism with right bundle branch block pattern. Chest x-ray negative for acute cardiopulmonary process. Laboratory data reviewed, hemoglobin 9, platelets 260, sodium 138, potassium 4.4 , creatinine 1.45. Current cardiac medications include digoxin 250 g daily, lisinopril 20 mg daily and Lopressor 25 mg twice a day. She also takes metformin, Glucotrol, Salagen, Paxil, Imodium, Synthroid, Advair, Flonase, and albuterol. Review of Systems At the time of my exam: CONSTITUTIONAL: Denies fever. Denies chills. EYES: Denies blurred vision. Denies vision changes. Denies eye pain. EARS, NOSE, MOUTH & THROAT: Denies headache. Denies sore throat. Denies ear pain. CARDIOVASCULAR: Denies chest pain. Denies shortness of breath. Denies orthopnea. Denies PND. Denies palpitations. RESPIRATORY: Denies cough. GASTROINTESTINAL: Denies abdominal pain. Denies diarrhea. Denies constipation. Denies nausea. Denies vomiting. MUSCULOSKELETAL: Denies myalgias. INTEGUMENTARY: Denies pruitis. Denies rash. NEUROLOGIC: Denies numbness. Denies tingling. Denies weakness. PSYCHIATRIC: Denies anxiety. Denies depression. ENDOCRINE: Denies fatigue. Denies weight change. Denies polydipsia. Denies polyurina. GENITOURINARY: Denies burning, hematuria or urgency with micturation. HEMATOLOGIC: Denies history of anemia. Denies bleeding. Past Medical History Past Medical History: Asthma, Diabetes Mellitus, Hypertension, Mitral Valve Prolapse (MVP), Osteoarthritis (OA), Supraventricular Tachycardia (SVT), Thyroid Disorder Additional Past Medical History / Comment(s): diarrhea, anemia, sjogrens, History of Any Multi-Drug Resistant Organisms: None Reported Past Surgical History: Cholecystectomy, Heart Catheterization, Orthopedic Surgery, Tonsillectomy Additional Past Surgical History / Comment(s): rt knee surgery Past Anesthesia/Blood Transfusion Reactions: No Reported Reaction Smoking Status: Never smoker - Past Family History Mother Family Medical History: Cancer Brother(s) Family Medical History: Pulmonary Embolus Medications and Allergies Home Medications Medication Instructions Recorded Confirmed Type Digoxin [Lanoxin] 250 mcg PO DAILY 10/28/15 10/30/17 History Fluticasone/Salmeterol [Advair 1 puff INHALATION RT-DAILY PRN 10/28/15 10/30/17 History 250-50 Diskus] Levothyroxine Sodium [Synthroid] 25 mcg PO DAILY 10/28/15 10/30/17 History Metoprolol Tartrate [Lopressor] 25 mg PO BID 10/28/15 10/30/17 History PARoxetine [Paxil] 20 mg PO DAILY 10/28/15 10/30/17 History Pilocarpine [Salagen] 7.5 mg PO BID 10/28/15 10/30/17 History metFORMIN HCL 1,000 mg PO BID 10/28/15 10/30/17 History Albuterol Nebulized [Ventolin 2.5 mg INHALATION RT-DAILY PRN 10/30/17 10/30/17 History Nebulized] Biotene Oral Balance Gel 1 applic MM DAILY PRN 10/30/17 10/30/17 History Diclofenac Sodium [Voltaren Gel] 1 gram TOPICAL DAILY PRN 10/30/17 10/30/17 History Fluticasone Nasal [place] [Flonase 1 spr EA NOSTRIL DAILY PRN 10/30/17 10/30/17 History Nasal Sunman] Lisinopril [Zestril] 20 mg PO DAILY 10/30/17 10/30/17 History Loperamide [Imodium] 2 mg PO QID PRN 10/30/17 10/30/17 History Propylene Glycol/Peg 400/Pf 1 drop BOTH EYES DAILY PRN 10/30/17 10/30/17 History [Systane 0.3-0.4% Eye Drops] glipiZIDE [Glucotrol] 10 mg PO AC-BRKFST 10/30/17 10/30/17 History Allergies Allergy/AdvReac Type Severity Reaction Status Date / Time Penicillins Allergy Rash/Hives Verified 10/30/17 12:49 Physical Exam Vitals: Vital Signs Temp Pulse Pulse Pulse Pulse Resp BP 11/01/17 08:00 60 58 L 16 11/01/17 07:30 66 11/01/17 07:20 60 11/01/17 06:19 98.7 F 58 L 16 123/57 10/31/17 22:42 97.9 F 63 16 141/65 10/31/17 21:55 16 10/31/17 16:00 67 60 16 10/31/17 14:52 97.7 F 60 16 142/62 Pulse Ox 11/01/17 08:00 11/01/17 07:30 11/01/17 07:20 11/01/17 06:19 94 L 10/31/17 22:42 96 10/31/17 21:55 10/31/17 16:00 10/31/17 14:52 93 L Intake and Output 10/31/17 11/01/17 11/01/17 22:59 06:59 14:59 Intake Total 480 1190 Balance 480 1190 Intake: Oral 480 1190 Other: Voiding Method Toilet Toilet # Voids 1 Weight 102.058 kg Blood pressure 123/57 heart rate 58 afebrile maintaining oxygen saturation on room air GENERAL: This is a 67-year-old female in no apparent distress at the time of my examination. Obese. HEENT: Head is atraumatic, normocephalic. Pupils are equal, round. Sclerae anicteric. Conjunctivae are clear. Mucous membranes of the mouth are moist. Neck is supple. There is no jugular venous distention. No carotid bruit is heard. LUNGS: Clear to auscultation no wheezes, rales or rhonchi. No chest wall tenderness is noted on palpation or with deep breathing. HEART: Regular rate and rhythm with systolic ejection murmur at the base, no rubs or gallops. S1 and S2 heard. ABDOMEN: Soft, nontender. Bowel sounds are heard. No organomegaly noted. EXTREMITIES: Trace bilateral lower extremity peripheral edema and no calf tenderness noted. VASCULAR: Radial and dorsalis pedis pulses palpated, no evidence of clubbing. NEUROLOGIC: Patient is awake, alert and oriented x3. Results 11/01/17 07:54 11/01/17 07:54 Cardiac Enzymes 11/01/17 Range/Units 07:54 AST 28 (14-36) U/L CBC 11/01/17 Range/Units 07:54 WBC 7.5 (3.8-10.6) k/uL RBC 3.10 L (3.80-5.40) m/uL Hgb 9.0 L (11.4-16.0) gm/dL Hct 28.3 L (34.0-46.0) % Plt Count 260 (150-450) k/uL Comprehensive Metabolic Panel 11/01/17 Range/Units 07:54 Sodium 138 (137-145) mmol/L Potassium 4.4 (3.5-5.1) mmol/L Chloride 109 H (98-107) mmol/L Carbon Dioxide 21 L (22-30) mmol/L BUN 18 H (7-17) mg/dL Creatinine 1.45 H (0.52-1.04) mg/dL Glucose 141 H (74-99) mg/dL Calcium 9.2 (8.4-10.2) mg/dL AST 28 (14-36) U/L ALT 31 (9-52) U/L Alkaline Phosphatase 48 (38-126) U/L Total Protein 5.7 L (6.3-8.2) g/dL Albumin 3.1 L (3.5-5.0) g/dL Current Medications Generic Name Dose Route Start Last Admin Trade Name Freq PRN Reason Stop Dose Admin Acetaminophen 650 mg 10/30/17 00:58 11/01/17 02:37 Tylenol Tab PO 650 mg Q6HR PRN Administration Mild Pain or Fever > 100.5 Albuterol Sulfate 2.5 mg 10/30/17 13:01 11/01/17 07:17 Ventolin Nebulized INHALATION 2.5 mg RT-DAILY PRN Administration Shortness Of Breath Amlodipine Besylate 5 mg 10/31/17 09:00 11/01/17 08:41 Norvasc PO 5 mg DAILY BRANDAN Administration Budesonide/Formoterol Fumarate 2 puff 10/30/17 01:02 Symbicort 80-4.5 Mcg Inhaler INHALATION DIRECTED PRN Shortness Of Breath Ceftriaxone Sodium 1,000 mg 10/31/17 12:00 11/01/17 12:03 Rocephin IVP 1,000 mg Q24H BRANDAN Administration Digoxin 250 mcg 10/30/17 09:00 11/01/17 08:41 Lanoxin PO 250 mcg DAILY BRANDAN Administration Enoxaparin Sodium 40 mg 10/30/17 10:15 11/01/17 08:40 Lovenox SQ 40 mg DAILY BRANDAN Administration Glipizide 10 mg 10/31/17 07:30 11/01/17 08:41 Glucotrol PO 10 mg AC-BRKFST BRANDAN Administration Sodium Chloride 1,000 mls @ 20 mls/hr 10/30/17 22:00 10/31/17 21:17 Saline 0.9% IV Not Given .Q24H BRANDAN Ibuprofen 600 mg 10/30/17 13:11 Motrin PO Q12HR PRN Fever Insulin Aspart 0 unit 10/30/17 12:49 11/01/17 12:46 Novolog SQ 2 unit ACHS [facility] Administration Protocol Levofloxacin 250 mg 10/31/17 21:00 11/01/17 00:39 Levaquin PO 250 mg HS BRANDAN Administration Levothyroxine Sodium 25 mcg 10/30/17 06:30 11/01/17 07:17 Synthroid PO 25 mcg DAILY@0630 BRANDAN Administration Lisinopril 20 mg 10/31/17 09:00 11/01/17 08:41 Zestril PO 20 mg DAILY [facility] Administration Metoprolol Tartrate 25 mg 10/30/17 09:00 11/01/17 08:41 Lopressor PO 25 mg BID [facility] Administration Naloxone HCl 0.2 mg 10/30/17 00:58 Narcan IV Q2M PRN Opioid Reversal Ondansetron HCl 4 mg 10/30/17 00:58 Zofran IVP Q8HR PRN Nausea And Vomiting Pantoprazole Sodium 40 mg 10/31/17 07:30 11/01/17 08:41 Protonix PO 40 mg AC-BRKFST BRANDAN Administration Paroxetine HCl 20 mg 10/30/17 09:00 11/01/17 08:42 Paxil PO 20 mg DAILY BRANDAN Administration Pilocarpine HCl 7.5 mg 10/30/17 21:00 11/01/17 08:41 Salagen PO 7.5 mg BID BRANDAN Administration Intake and Output 10/31/17 11/01/17 11/01/17 22:59 06:59 14:59 Intake Total 480 1190 Balance 480 1190 Intake: Oral 480 1190 Other: Voiding Method Toilet Toilet # Voids 1 Weight 102.058 kg 11/01/17 07:54 11/01/17 07:54 Assessment and Plan Assessment: ASSESSMENT Febrile illness, unknown source. Evidence of lesion on the posterior leaflet of echocardiogram. Urine and blood cultures are negative. Sepsis History for excisional SVT currently maintaining sinus mechanism with no acute arrhythmia noted Diabetes mellitus Hypertension PLAN RACHEL will be performed tomorrow by her primary gold leaf laborer Dr. Lira. This procedure has been explained in detail to the patient in question 7 answered appropriately. She is agreeable to move forward with the above stated procedure. The above impression and plan of care have been discussed and directed by the signing physician. Crystal Laws, nurse practitioner, acting as scribe for signing physician.
[2017-11-01 17:00] LABS: Glucose,Whole Blood 265 mg/dL (75-99)
--- NOTE | 2017-11-01 18:34 | P.PN ---
Subjective Progress Note Date: 11/01/17 Amelia Underwood is a 67-year-old female patient of Dr. Zainab Zuleta who presented to [facility] emergency room with a 2 day history of elevated temperature, with generalized weakness and sweating, patient states that 2 days prior to presentation she had a temperature up to 103 she took Tylenol at home and had improvement in her condition, however fever recurred and patient was having generalized weakness and sweating, no other localized symptoms, no cough or shortness of breath, no burning was urination no frequency or urgency, no hematuria, and no abdominal pain no vomiting and no diarrhea. She was evaluated in the emergency room, temperature on presentation was 102.3 white blood count was normal at 8.7 chest x-ray did not reveal any evidence of acute infiltrate, urine analysis revealed 1 white blood cell with rare bacteria and urine mucus. She was started on IV antibiotic Rocephin and Levaquin and was admitted to medical floor. On presentation to emergency room patient had metabolic acidosis was pH of 7.27. Patient was seen and examined on the fifth floor she is alert and oriented 3 she is feeling tired but denies any specific symptoms at this time, temperature is down to 98.5 she denies any cough or shortness of breath she denies any chest pain no headache no dizziness no stiff neck no nausea or vomiting no abdominal pain, she is having frequency was urination but no burning with urination and no urgency, she denies any diarrhea, she is complaining of left knee pain, denies any skin ulcers anywhere on her body. On 10/31/2017 Patient currently resting in bed. Patient does reports she is feeling better than she did yesterday because she has been able to get some sleep. Patient still having low-grade temperatures 99 F. patient's blood pressure improving now 146/79. Norvasc was added. 2-D echo was completed EF 55 -55%. Chest x-ray completed per Dr. Merritt showing no acute process. Per infectious disease will continue Rocephin 1 g daily and Levaquin. Orders for sputum culture and sensitivity has been ordered. Patient denies chest pain or shortness of breath at this time. Denies nausea vomiting or diarrhea. Denies urinary symptoms. On 11/01/2017 patient is feeling better she is alert and oriented 3 no new episodes of fever, clinically patient is feeling better on antibiotics, source of infection not entirely clear, no evidence of infection in the urine and no evidence of abnormality on chest x-ray, echocardiogram was done and revealed echodense lesion on the posterior leaflet exact nature and clear, cardiology consult was requested for possible RACHEL. Infectious disease also following. Objective - Vital Signs Vital signs: Vital Signs Temp 98.4 F 11/01/17 14:00 Pulse 59 L 11/01/17 14:00 Resp 18 11/01/17 14:00 BP 148/66 11/01/17 14:00 Pulse Ox 94 L 11/01/17 14:00 Intake & Output 10/31/17 11/01/17 11/01/17 18:59 06:59 18:59 Intake Total 1400 1670 Balance 1400 1670 Weight 102.058 kg Intake: Oral 1400 1670 Other: Voiding Method Toilet Toilet Toilet # Voids 4 1 3 - Exam Head normocephalic and atraumatic Neck supple no JVD no goiter Lungs a few scattered rhonchi and wheezing Heart regular rate and rhythm S1-S2, no rub or gallop Abdomen is soft nontender nondistended positive bowel sounds no hepatosplenomegaly Extremities no edema Neuro alert and orientated to 3 - Labs CBC & Chem 7: 11/01/17 07:54 11/01/17 07:54 Labs: Abnormal Lab Results - Last 24 Hours (Table) 10/31/17 11/01/17 11/01/17 Range/Units 20:09 06:52 07:54 RBC 3.10 L (3.80-5.40) m/uL Hgb 9.0 L (11.4-16.0) gm/dL Hct 28.3 L (34.0-46.0) % Chloride (98-107) mmol/L Carbon Dioxide (22-30) mmol/L BUN (7-17) mg/dL Creatinine (0.52-1.04) mg/dL Glucose (74-99) mg/dL POC Glucose (mg/dL) 248 H 138 H (75-99) mg/dL Total Protein (6.3-8.2) g/dL Albumin (3.5-5.0) g/dL 11/01/17 11/01/17 11/01/17 Range/Units 07:54 11:25 16:58 RBC (3.80-5.40) m/uL Hgb (11.4-16.0) gm/dL Hct (34.0-46.0) % Chloride 109 H (98-107) mmol/L Carbon Dioxide 21 L (22-30) mmol/L BUN 18 H (7-17) mg/dL Creatinine 1.45 H (0.52-1.04) mg/dL Glucose 141 H (74-99) mg/dL POC Glucose (mg/dL) 169 H 265 H (75-99) mg/dL Total Protein 5.7 L (6.3-8.2) g/dL Albumin 3.1 L (3.5-5.0) g/dL Microbiology - Last 24 Hours (Table) 10/30/17 10:15 Blood Culture - Preliminary Blood No Growth after 48 hours 10/31/17 14:40 Gram Stain - Preliminary Sputum Sputum Culture - Preliminary 10/29/17 23:40 Blood Culture - Preliminary Blood No Growth after 48 hours Assessment and Plan Plan: #1 febrile illness was possible sepsis, blood culture and urine culture were done, patient was started on IV Rocephin and IV Levaquin will continue at this time, awaiting culture results, will consult Dr. Merritt infectious disease. 2-D echo completed showing EF50- 55%. Sputum and chest x-ray have been ordered per Dr. Merritt. Chest x-ray showing no acute process at this time. Blood and urine cultures have been ordered and currently showing no growth. Patient on 1 g Rocephin every 24 hours and Levaquin per infectious disease. Exact source of infection is unclear, echocardiogram reveals evidence of echodense lesion on the posterior leaflet, cardiology consultation was requested for possible RACHEL #2 underlying history of diabetes mellitus, will continue with glipizide, which was hold metformin at this time, will check hemoglobin A1c, will cover with NovoLog sliding scale. #3 sepsis with elevated temperature and elevated lactic acid received IV fluid Will continue with normal saline at 100 mL an hour #4 underlying history of hypertension maintained on lisinopril and metoprolol, blood pressure was significantly elevated on presentation will monitor and adjust medications if needed. Norvasc 5 mg have been added blood pressure improving. #5 underlying history of myelodysplasia, followed by Dr Ayoub #6 underlying history of hypothyroidism maintained on Synthroid 25 g daily. TSH 3.5 #7 underlying history of depression maintained on Paxil will continue #8 metabolic acidosis on presentation will recheck arterial blood gas and monitor closely. PH improving 7.36 For GI prophylaxis patient will be given Protonix for DVT prophylaxis she will receive subcu Lovenox
[2017-11-01 20:30] LABS: Glucose,Whole Blood 145 mg/dL (75-99)
--- NOTE | 2017-11-01 23:47 | PN ---
PROGRESS NOTE DATE OF SERVICE: 11/01/2017. REASON FOR FOLLOWUP: 1. Fever. 2. Abnormal echocardiogram. INTERVAL HISTORY: The patient is afebrile. She has been breathing comfortably. Denies significant chest pain. Minimal cough. No abdominal pain. No nausea, vomiting or any diarrhea. The patient did have an echocardiogram done which did show some abnormality, echo dense lesion on the leaflet, not clear which wall was that. The patient denies any history of recent dental workup. He did have upper and lower dentures. No other invasive procedures recently. EXAMINATION: Her blood pressure is 148/66 with a pulse of 59, temperature 98.4. She is 94% on room air. General description is an elderly female up in the bed in no distress. RESPIRATORY SYSTEM: Unlabored breathing. Clear to auscultation anteriorly. HEART: S1, S2. Regular rate and rhythm. ABDOMEN: Soft. No tenderness. EXTREMITIES: No edema of the feet. LABS: Hemoglobin is 9 with a white count of 7.5. BUN of 18, creatinine is 1.45. Blood culture has been negative. Sputum culture currently pending. DIAGNOSTIC IMPRESSION AND PLAN: Patient with a fever with initial concern for possible pneumonia in view of her respiratory symptoms. Her fever has resolved with Rocephin, now with abnormal echo. Recommend cardiology evaluation and a RACHEL to better define the echo dense lesion. Continue supportive care. MMODL / IJN: [id number] /
[2017-11-02] MEDS: SODIUM CHLORIDE 0.9% 1,000 ML IV SCH (02:06)
[2017-11-02] MEDS: LEVOTHYROXINE 25 MCG TAB PO SCH (06:16)
[2017-11-02 07:01] LABS: Glucose,Whole Blood 145 mg/dL (75-99)
[2017-11-02] MEDS: glipiZIDE 10 MG TAB PO SCH (07:41)
[2017-11-02] MEDS: INSULIN ASPART 100 UNIT/ML 1 ML 10 ML VIAL SQ SCH ×4 (07:43→21:00)
[2017-11-02 08:12] LABS: Basophils % (A) 0 %; Eosinophils # (A) 0.3 k/uL (0-0.7); Eosinophils % (A) 4 %; HCT 27.4 % (34.0-46.0); HGB 8.6 gm/dL (11.4-16.0); Lymphocytes # (A) 0.8 k/uL (1.0-4.8); Lymphocytes % (A) 11 %; MCH 28.8 pg (25.0-35.0); MCHC 31.4 g/dL (31.0-37.0); MCV 91.6 fL (80.0-100.0); Mean Platelet Volume 6.5; Monocytes # (A) 0.3 k/uL (0-1.0); Monocytes % (A) 5 %; Neutrophils # (A) 5.7 k/uL (1.3-7.7); Neutrophils % (A) 79 %; Platelet Count 265 k/uL (150-450); RBC 2.99 m/uL (3.80-5.40); RDW 14.1 % (11.5-15.5); WBC 7.3 k/uL (3.8-10.6)
[2017-11-02 08:27] LABS: Potassium 4.5 mmol/L (3.5-5.1); Total Bilirubin 0.6 mg/dL (0.2-1.3); Total Protein 5.5 g/dL (6.3-8.2)
[2017-11-02] MEDS: PILOCARPINE 5 MG TAB PO SCH ×2 (08:44→21:00)
[2017-11-02] MEDS: PARoxetine 20 MG TAB PO SCH (08:45)
[2017-11-02] MEDS: LISINOPRIL 20 MG TAB PO SCH (08:46)
[2017-11-02] MEDS: DIGOXIN 250 MCG TAB PO SCH (08:46)
[2017-11-02] MEDS: ENOXAPARIN 40 MG/0.4 ML SYRINGE SQ SCH (08:46)
[2017-11-02] MEDS: amLODIPine 5 MG TAB PO SCH (08:47)
[2017-11-02] MEDS: METOPROLOL TARTRATE 25 MG TAB PO SCH ×2 (08:47→21:02)
[2017-11-02] MEDS: PANTOPRAZOLE 40 MG TABLET PO SCH (08:47)
[2017-11-02 11:28] LABS: Glucose,Whole Blood 150 mg/dL (75-99)
--- NOTE | 2017-11-02 11:47 | P.PN ---
Subjective Progress Note Date: 11/02/17 Amelia Underwood is a 67-year-old female patient of Dr. Zainab Zuleta who presented to [facility] emergency room with a 2 day history of elevated temperature, with generalized weakness and sweating, patient states that 2 days prior to presentation she had a temperature up to 103 she took Tylenol at home and had improvement in her condition, however fever recurred and patient was having generalized weakness and sweating, no other localized symptoms, no cough or shortness of breath, no burning was urination no frequency or urgency, no hematuria, and no abdominal pain no vomiting and no diarrhea. She was evaluated in the emergency room, temperature on presentation was 102.3 white blood count was normal at 8.7 chest x-ray did not reveal any evidence of acute infiltrate, urine analysis revealed 1 white blood cell with rare bacteria and urine mucus. She was started on IV antibiotic Rocephin and Levaquin and was admitted to medical floor. On presentation to emergency room patient had metabolic acidosis was pH of 7.27. Patient was seen and examined on the fifth floor she is alert and oriented 3 she is feeling tired but denies any specific symptoms at this time, temperature is down to 98.5 she denies any cough or shortness of breath she denies any chest pain no headache no dizziness no stiff neck no nausea or vomiting no abdominal pain, she is having frequency was urination but no burning with urination and no urgency, she denies any diarrhea, she is complaining of left knee pain, denies any skin ulcers anywhere on her body. On 10/31/2017 Patient currently resting in bed. Patient does reports she is feeling better than she did yesterday because she has been able to get some sleep. Patient still having low-grade temperatures 99 F. patient's blood pressure improving now 146/79. Norvasc was added. 2-D echo was completed EF 55 -55%. Chest x-ray completed per Dr. Merritt showing no acute process. Per infectious disease will continue Rocephin 1 g daily and Levaquin. Orders for sputum culture and sensitivity has been ordered. Patient denies chest pain or shortness of breath at this time. Denies nausea vomiting or diarrhea. Denies urinary symptoms. On 11/01/2017 patient is feeling better she is alert and oriented 3 no new episodes of fever, clinically patient is feeling better on antibiotics, source of infection not entirely clear, no evidence of infection in the urine and no evidence of abnormality on chest x-ray, echocardiogram was done and revealed echodense lesion on the posterior leaflet exact nature and clear, cardiology consult was requested for possible RACHEL. Infectious disease also following. On 11/02/2017. Patient is currently sitting up in bed with family. Patient a known 3 states she feels much better today. No episodes of fevers or chills throughout night. Patient is waiting on RACHEL procedure today per cardiology. Patient remains on Rocephin and levoquin antibiotics, infectious disease following. Hemoglobin today 8.6. Patient denies any signs of active bleeding at this time Iron studies have been ordered. Patient denies chest pain or shortness breath at this time. Denies nausea vomiting or diarrhea. Denies urinary symptoms. Objective - Vital Signs Vital signs: Vital Signs Temp 98.2 F 11/02/17 05:00 Pulse 71 11/02/17 05:00 Resp 17 11/02/17 05:00 BP 149/73 11/02/17 05:00 Pulse Ox 93 L 11/02/17 05:00 Intake & Output 11/01/17 11/02/17 11/02/17 18:59 06:59 18:59 Intake Total 540 Balance 540 Weight 102.058 kg Intake: Oral 540 Other: Voiding Method Toilet Toilet Toilet # Voids 3 2 - Exam Head normocephalic Neck supple Lungs a few scattered rhonchi and wheezing Heart regular rate and rhythm S1-S2, no rub or gallop Abdomen is soft nontender nondistended positive bowel sounds no hepatosplenomegaly Extremities no edema Neuro alert and orientated to 3 - Labs CBC & Chem 7: 11/02/17 07:17 11/02/17 07:17 Labs: Abnormal Lab Results - Last 24 Hours (Table) 11/01/17 11/01/17 11/02/17 Range/Units 16:58 20:24 07:00 RBC (3.80-5.40) m/uL Hgb (11.4-16.0) gm/dL Hct (34.0-46.0) % Lymphocytes # (1.0-4.8) k/uL Chloride (98-107) mmol/L Carbon Dioxide (22-30) mmol/L BUN (7-17) mg/dL Creatinine (0.52-1.04) mg/dL Glucose (74-99) mg/dL POC Glucose (mg/dL) 265 H 145 H 145 H (75-99) mg/dL Total Protein (6.3-8.2) g/dL Albumin (3.5-5.0) g/dL 11/02/17 11/02/17 11/02/17 Range/Units 07:17 07:17 11:27 RBC 2.99 L (3.80-5.40) m/uL Hgb 8.6 L (11.4-16.0) gm/dL Hct 27.4 L (34.0-46.0) % Lymphocytes # 0.8 L (1.0-4.8) k/uL Chloride 109 H (98-107) mmol/L Carbon Dioxide 20 L (22-30) mmol/L BUN 21 H (7-17) mg/dL Creatinine 1.63 H (0.52-1.04) mg/dL Glucose 137 H (74-99) mg/dL POC Glucose (mg/dL) 150 H (75-99) mg/dL Total Protein 5.5 L (6.3-8.2) g/dL Albumin 3.0 L (3.5-5.0) g/dL Microbiology - Last 24 Hours (Table) 10/29/17 23:40 Blood Culture - Preliminary Blood No Growth after 72 hours 10/30/17 10:15 Blood Culture - Preliminary Blood No Growth after 48 hours 10/31/17 14:40 Gram Stain - Preliminary Sputum Sputum Culture - Preliminary Assessment and Plan Assessment: 1 febrile illness was possible sepsis, blood culture and urine culture were done , patient was started on IV Rocephin and IV Levaquin will continue at this time , awaiting culture results, will consult Dr. Merritt infectious disease. 2-D echo completed showing EF50- 55%. Sputum and chest x-ray have been ordered per Dr. Merritt. Chest x-ray showing no acute process at this time. Blood and urine cultures have been ordered and currently showing no growth. Patient on 1 g Rocephin every 24 hours and Levaquin per infectious disease. Exact source of infection is unclear, echocardiogram reveals evidence of echodense lesion on the posterior leaflet, cardiology consultation was requested for possible RACHEL. RACHEL to be performed today by Dr. Ochoa. #2 underlying history of diabetes mellitus, will continue with glipizide, which was hold metformin at this time, will check hemoglobin A1c, will cover with NovoLog sliding scale. #3 sepsis with elevated temperature and elevated lactic acid received IV fluid Will continue with normal saline at 100 mL an hour #4 underlying history of hypertension maintained on lisinopril and metoprolol, blood pressure was significantly elevated on presentation will monitor and adjust medications if needed. Norvasc 5 mg have been added blood pressure improving. #5 underlying history of myelodysplasia, followed by Dr Ayoub #6 underlying history of hypothyroidism maintained on Synthroid 25 g daily. TSH 3.5 #7 underlying history of depression maintained on Paxil will continue #8 metabolic acidosis on presentation will recheck arterial blood gas and monitor closely. PH improving 7.36 #9 acute on chronic kidney disease. Creatinine 1.63, bun 21. We'll continue to monitor closely. For GI prophylaxis patient will be given Protonix for DVT prophylaxis she will receive subcu Lovenox I performed an examination of the patient and discussed their management with the Nurse Practitioner. I have reviewed the Nurse Practitioner's notes and agree with the documented findings and plan of care
[2017-11-02] MEDS ORDERED: fentaNYL (PF) 50 MCG/ML 2 ML AMP ONE (11:59)
[2017-11-02] MEDS ORDERED: MIDAZOLAM 2 MG/2 ML VIAL ONE (11:59)
[2017-11-02] MEDS ORDERED: SODIUM CHLORIDE 0.9% 500 ML IV ONE (12:26)
[2017-11-02] MEDS: BENZOCAINE SPRAY 1 CAN MUCOUS MEM ONE ×2 (12:26→12:31)
[2017-11-02] MEDS ORDERED: MIDAZOLAM 2 MG/2 ML VIAL IVP ONE (12:32)
[2017-11-02] MEDS ORDERED: fentaNYL (PF) 50 MCG/ML 2 ML AMP IV ONE (12:32)
--- NOTE | 2017-11-02 13:17 | ECHOT ---
TRANSESOPHAGEAL ECHOCARDIOGRAM DATE OF SERVICE: November 02, 2017 PERFORMING PHYSICIAN: Cr Lira MD. PROCEDURE PERFORMED: Transesophageal echocardiogram. INDICATION: This is a pleasant 67-year-old female patient who was admitted to the hospital with fever. The transesophageal echocardiogram is to rule out any endocarditis. COMPLICATION: None. LEVEL OF SEDATION: Moderate with sedation length of 16 minutes. PROCEDURE DESCRIPTION: After obtaining an informed consent, explaining the procedure, benefits, risks, complications and alternatives, the patient was brought to the transesophageal echocardiogram suite. A pulse oximetry and heart rate monitors were attached to the patient prior to the procedure. The patient's throat was sprayed using lidocaine locally. Following that, the patient was turned into left lateral position. A bite guard was placed and the patient was then sedated with the above doses of Versed and fentanyl in divided doses. Following that, the transesophageal echocardiogram probe was advanced through the bite guard into the mid esophagus where 2-D echocardiogram images as well as color Doppler images of various cardiac structures were obtained. We evaluated the interatrial septum using 2-D echocardiogram, color Doppler, and contrast study. The procedure was completed. There were no complications. FINDINGS: The left ventricular dimension and systolic function appeared to be within normal limits. The ejection fraction appeared to be in the range of 55% to 60% and normal wall motion. There is mild to moderate concentric LVH seen. The right ventricle is of normal size and function. The left atrial appendage was not well visualized. The interatrial septum appeared to be intact without any evidence of shunt. The mitral valve appeared to be thickened and calcified with evidence of mitral annular calcifications and moderate mitral insufficiency. The aortic valve is trileaflet valve with evidence of mild to moderate aortic stenosis. The tricuspid valve and pulmonic valve appeared to be well visualized and the tricuspid valve and pulmonic valve appeared to be within normal limits. CONCLUSION: 1. There is no evidence of endocarditis. 2. Normal left ventricular dimension and systolic function. 3. Normal right ventricular dimension and systolic function. 4. Thickened mitral valve leaflets without any evidence of endocarditis. There was moderate mitral insufficiency. 5. Aortic sclerosis with mild to moderate aortic stenosis as well. No evidence of endocarditis seen on the aortic valve as well. 6. Severe tricuspid regurgitation . 7. Severe pulmonary hypertension. The pulmonary artery systolic pressure was calculated to be 60 mmHg. 8. Normal pulmonic valve. 9. Intact interatrial septum without any evidence of shunt. 10.Normal aortic root dimension. 11.No evidence of pericardial effusion. MMODL / IJN: [id number] /
[2017-11-02] MEDS: cefTRIAXone IN SWFI 1,000 MG/10 ML SYRINGE IVP SCH (13:41)
[2017-11-02 16:44] LABS: Glucose,Whole Blood 181 mg/dL (75-99)
[2017-11-02 18:21] VITALS: RESP 16
[2017-11-02 19:33] LABS: Iron Saturation 9.93 (12.00-45.00)
[2017-11-02 20:15] LABS: Glucose,Whole Blood 245 mg/dL (75-99)
[2017-11-02] MEDS: LEVOFLOXACIN 250 MG TAB PO SCH (21:00)
[2017-11-03] MEDS ORDERED: IBUPROFEN 600 MG TAB PO ONE (04:19)
[2017-11-03] MEDS: LEVOTHYROXINE 25 MCG TAB PO SCH (06:11)
[2017-11-03] MEDS: SODIUM CHLORIDE 0.9% 1,000 ML IV SCH (06:11)
[2017-11-03 07:06] LABS: Glucose,Whole Blood 134 mg/dL (75-99)
[2017-11-03 07:27] LABS: Basophils % (A) 0 %; Eosinophils # (A) 0.2 k/uL (0-0.7); Eosinophils % (A) 3 %; HCT 26.3 % (34.0-46.0); HGB 8.6 gm/dL (11.4-16.0); Lymphocytes % (A) 13 %; MCH 30.1 pg (25.0-35.0); MCHC 32.6 g/dL (31.0-37.0); MCV 92.2 fL (80.0-100.0); Mean Platelet Volume 6.4; Monocytes # (A) 0.4 k/uL (0-1.0); Monocytes % (A) 6 %; Neutrophils # (A) 5.9 k/uL (1.3-7.7); Neutrophils % (A) 76 %; Platelet Count 231 k/uL (150-450); RBC 2.86 m/uL (3.80-5.40); RDW 14.2 % (11.5-15.5); WBC 7.7 k/uL (3.8-10.6)
[2017-11-03 07:39] LABS: Albumin 2.8 g/dL (3.5-5.0); Calcium 8.7 mg/dL (8.4-10.2); Potassium 4.6 mmol/L (3.5-5.1); Total Bilirubin 0.5 mg/dL (0.2-1.3); Total Protein 5.4 g/dL (6.3-8.2)
--- NOTE | 2017-11-03 07:42 | PN ---
PROGRESS NOTE DATE OF SERVICE: 11/02/2017 REASON FOR FOLLOWUP: 1. Fever. 2. Abnormal echo with a question of possible endocarditis. INTERVAL HISTORY: The patient is afebrile. She is breathing comfortably. Denies significant chest pain. She did have some cough and bringing up more sputum. No abdominal pain. No nausea, vomiting, or any diarrhea. PHYSICAL EXAMINATION: On examination, blood pressure 136/70 with a pulse of 60, temperature of 98.1. She is 93% on room air. General description is an elderly female, lying in bed in no distress. RESPIRATORY SYSTEM: Unlabored breathing, clear to auscultation anteriorly. HEART: S1, S2. Regular rate and rhythm. ABDOMEN: Soft, no tenderness. LABS: Hemoglobin is 8.6, white count 7.3. BUN of 21, creatinine 1.63. Sputum with [place], which is colonized. The blood culture has been negative. DIAGNOSTIC IMPRESSION AND PLAN: 1. Patient admitted to the hospital with fever, concern for possible pneumonia; however, x-rays have been negative. Patient has responded to the Rocephin that can be transitioned to oral Ceftin 500 mg b.i.d. for another 5 days. 2. Patient with abnormal echo with concern for possible endocarditis. However, the RACHEL is negative. No need for further workup for the same. Blood culture has been negative as well. MMODL / IJN: [id number] /
[2017-11-03] MEDS: INSULIN ASPART 100 UNIT/ML 1 ML 10 ML VIAL SQ SCH ×2 (08:03→12:28)
[2017-11-03] MEDS: ENOXAPARIN 40 MG/0.4 ML SYRINGE SQ SCH (08:04)
[2017-11-03] MEDS: METOPROLOL TARTRATE 25 MG TAB PO SCH (08:04)
[2017-11-03] MEDS: PILOCARPINE 5 MG TAB PO SCH (08:04)
[2017-11-03] MEDS: DIGOXIN 250 MCG TAB PO SCH (08:04)
[2017-11-03] MEDS: glipiZIDE 10 MG TAB PO SCH (08:05)
[2017-11-03] MEDS: PANTOPRAZOLE 40 MG TABLET PO SCH (08:05)
[2017-11-03] MEDS: amLODIPine 5 MG TAB PO SCH (08:06)
[2017-11-03] MEDS: PARoxetine 20 MG TAB PO SCH (08:06)
[2017-11-03 09:33] VITALS: TEMP 98.2
[2017-11-03 11:36] LABS: Glucose,Whole Blood 227 mg/dL (75-99)
[2017-11-03] MEDS: cefTRIAXone IN SWFI 1,000 MG/10 ML SYRINGE IVP SCH (11:50)
[2017-11-03 14:00] VITALS: BP 142/67; PULSE 58
--- NOTE | 2017-11-03 14:37 | P.DS ---
Providers Date of admission: 10/30/17 10:36 Expected date of discharge: 11/03/17 Attending physician: Pat Mederos Consults: 10/30/17 15:02 Consult Physician Routine Consulting Provider: Emily Merritt Consult Reason/Comments: fever Do you want consulting provider notified?: Yes 11/01/17 12:03 Consult Physician Routine Consulting Provider: Cr Lira Consult Reason/Comments: RACHEL Do you want consulting provider notified?: Yes Primary care physician: Zainab Zuleta Hospital Course: Discharge Diagnosis 1 febrile illness was possible sepsis, blood culture and urine culture were done , patient was started on IV Rocephin and IV Levaquin will continue at this time , awaiting culture results, will consult Dr. Merritt infectious disease. 2-D echo completed showing EF50- 55%. Sputum and chest x-ray have been ordered per Dr. Merritt. Chest x-ray showing no acute process at this time. Blood and urine cultures have been ordered and currently showing no growth. Patient on 1 g Rocephin every 24 hours and Levaquin per infectious disease. Exact source of infection is unclear, echocardiogram reveals evidence of echodense lesion on the posterior leaflet, cardiology consultation was requested for possible RACHEL. RACHEL to be performed today by Dr. Ochoa. RACHEL performed by Dr. Ochoa showing no evidence of vegetation or endocarditis. Urine and blood cultures negative. Sputum positive for Sydney albicans. She will be discharged home on Diflucan. Per infectious disease Dr. Merritt patient can be DC'd home on Ceftin 500 mg twice a day for 5 days. Prescription written for 10 days clarified patient's pharmacy for only 5 days per infectious disease #2 underlying history of diabetes mellitus, will continue with glipizide, which was hold metformin at this time, will check hemoglobin A1c, will cover with NovoLog sliding scale. Metformin will be held on discontinued. Glipizide will be increased to 10 mg twice a day. Patient instructed to check blood sugar at least twice a day and follow-up with primary care provider #3 sepsis with elevated temperature and elevated lactic acid received IV fluid Will continue with normal saline at 100 mL an hour. Patient has been afebrile for 3 days. #4 underlying history of hypertension maintained on lisinopril and metoprolol, blood pressure was significantly elevated on presentation will monitor and adjust medications if needed. Norvasc 5 mg have been added blood pressure improving. Pressure 142/67 #5 underlying history of myelodysplasia, followed by Dr Ayoub #6 underlying history of hypothyroidism maintained on Synthroid 25 g daily. TSH 3.5 #7 underlying history of depression maintained on Paxil will continue #8 metabolic acidosis on presentation will recheck arterial blood gas and monitor closely. PH improving 7.36 #9 acute on chronic kidney disease. Creatinine 1.63, bun 21. We'll continue to monitor closely. Creatinine 1.61. Lisinopril and metformin will be discontinued upon discharge patient to follow-up with primary care provider Hospital Course Amelia Underwood is a 67-year-old female patient of Dr. Zainab Zuleta who presented to [facility] emergency room with a 2 day history of elevated temperature, with generalized weakness and sweating, patient states that 2 days prior to presentation she had a temperature up to 103 she took Tylenol at home and had improvement in her condition, however fever recurred and patient was having generalized weakness and sweating, no other localized symptoms, no cough or shortness of breath, no burning was urination no frequency or urgency, no hematuria, and no abdominal pain no vomiting and no diarrhea. She was evaluated in the emergency room, temperature on presentation was 102.3 white blood count was normal at 8.7 chest x-ray did not reveal any evidence of acute infiltrate, urine analysis revealed 1 white blood cell with rare bacteria and urine mucus. She was started on IV antibiotic Rocephin and Levaquin and was admitted to medical floor. On presentation to emergency room patient had metabolic acidosis was pH of 7.27. Patient was seen and examined on the fifth floor she is alert and oriented 3 she is feeling tired but denies any specific symptoms at this time, temperature is down to 98.5 she denies any cough or shortness of breath she denies any chest pain no headache no dizziness no stiff neck no nausea or vomiting no abdominal pain, she is having frequency was urination but no burning with urination and no urgency, she denies any diarrhea, she is complaining of left knee pain, denies any skin ulcers anywhere on her body. On 10/31/2017 Patient currently resting in bed. Patient does reports she is feeling better than she did yesterday because she has been able to get some sleep. Patient still having low-grade temperatures 99 F. patient's blood pressure improving now 146/79. Norvasc was added. 2-D echo was completed EF 55 -55%. Chest x-ray completed per Dr. Merritt showing no acute process. Per infectious disease will continue Rocephin 1 g daily and Levaquin. Orders for sputum culture and sensitivity has been ordered. Patient denies chest pain or shortness of breath at this time. Denies nausea vomiting or diarrhea. Denies urinary symptoms. On 11/01/2017 patient is feeling better she is alert and oriented 3 no new episodes of fever, clinically patient is feeling better on antibiotics, source of infection not entirely clear, no evidence of infection in the urine and no evidence of abnormality on chest x-ray, echocardiogram was done and revealed echodense lesion on the posterior leaflet exact nature and clear, cardiology consult was requested for possible RACHEL. Infectious disease also following. On 11/02/2017. Patient is currently sitting up in bed with family. Patient a known 3 states she feels much better today. No episodes of fevers or chills throughout night. Patient is waiting on RACHEL procedure today per cardiology. Patient remains on Rocephin and levoquin antibiotics, infectious disease following. Hemoglobin today 8.6. Patient denies any signs of active bleeding at this time Iron studies have been ordered. Patient denies chest pain or shortness breath at this time. Denies nausea vomiting or diarrhea. Denies urinary symptoms. On 11/03/2017 she is feeling great and eager to get home. RACHEL completed yesterday was negative for endocarditis or any vegetation. Per infectious disease patient will continue Ceftin by mouth antibiotics for 5 days. Patient also be discharged home on Diflucan for positive sputum for Sydney Albicans. Patient to follow up with primary care provider closely in regards to kidney function and blood sugar. I performed an examination of the patient and discussed their management with the Nurse Practitioner. I have reviewed the Nurse Practitioner's notes and agree with the documented findings and plan of care Patient Condition at Discharge: Good Plan - Discharge Summary Discharge Rx Participant: No New Discharge Prescriptions: New amLODIPine [Norvasc] 5 mg PO DAILY #30 tab Cefuroxime Axetil [Ceftin] 500 mg PO BID 10 Days #10 tab Fluconazole [Diflucan] 100 mg PO DAILY 7 Days #7 tab Continue Pilocarpine [Salagen] 7.5 mg PO BID PARoxetine [Paxil] 20 mg PO DAILY Levothyroxine Sodium [Synthroid] 25 mcg PO DAILY Metoprolol Tartrate [Lopressor] 25 mg PO BID Digoxin [Lanoxin] 250 mcg PO DAILY Fluticasone/Salmeterol [Advair 250-50 Diskus] 1 puff INHALATION RT-DAILY PRN PRN Reason: Shortness Of Breath Propylene Glycol/Peg 400/Pf [Systane 0.3-0.4% Eye Drops] 1 drop BOTH EYES DAILY PRN PRN Reason: DRY EYES Loperamide [Imodium] 2 mg PO QID PRN PRN Reason: Loose Stool Albuterol Nebulized [Ventolin Nebulized] 2.5 mg INHALATION RT-DAILY PRN PRN Reason: Shortness Of Breath Fluticasone Nasal Sutherland [Flonase Nasal Sutherland] 1 spr EA NOSTRIL DAILY PRN PRN Reason: Allergy Symptoms Biotene Oral Balance Gel 1 applic MM DAILY PRN PRN Reason: Dry Mouth Diclofenac Sodium [Voltaren Gel] 1 gram TOPICAL DAILY PRN PRN Reason: Pain Changed glipiZIDE [Glucotrol] 10 mg PO BID #30 tab Discontinued metFORMIN HCL 1,000 mg PO BID Lisinopril [Zestril] 20 mg PO DAILY Discharge Medication List Digoxin [Lanoxin] 250 mcg PO DAILY 10/28/15 [History] Fluticasone/Salmeterol [Advair 250-50 Diskus] 1 puff INHALATION RT-DAILY PRN [History] Levothyroxine Sodium [Synthroid] 25 mcg PO DAILY 10/28/15 [History] Metoprolol Tartrate [Lopressor] 25 mg PO BID 10/28/15 [History] PARoxetine [Paxil] 20 mg PO DAILY 10/28/15 [History] Pilocarpine [Salagen] 7.5 mg PO BID 10/28/15 [History] Albuterol Nebulized [Ventolin Nebulized] 2.5 mg INHALATION RT-DAILY PRN [History] Biotene Oral Balance Gel 1 applic MM DAILY PRN 10/30/17 [History] Diclofenac Sodium [Voltaren Gel] 1 gram TOPICAL DAILY PRN 10/30/17 [History] Fluticasone Nasal Sutherland [Flonase Nasal S[place]] 1 spr EA NOSTRIL DAILY PRN [History] Loperamide [Imodium] 2 mg PO QID PRN 10/30/17 [History] Propylene Glycol/Peg 400/Pf [Systane 0.3-0.4% Eye Drops] 1 drop BOTH EYES DAILY PRN 10/30/17 [History] Cefuroxime Axetil [Ceftin] 500 mg PO BID 10 Days #10 tab 11/03/17 [Rx] Fluconazole [Diflucan] 100 mg PO DAILY 7 Days #7 tab 11/03/17 [Rx] amLODIPine [Norvasc] 5 mg PO DAILY #30 tab 11/03/17 [Rx] glipiZIDE [Glucotrol] 10 mg PO BID #30 tab 11/03/17 [Rx] Follow up Appointment(s)/Referral(s): Zainab Zuleta DO [Primary Care Provider] - 1-2 days Diomedes Kincaid MD [STAFF PHYSICIAN] - 2 Weeks Activity/Diet/Wound Care/Special Instructions: Diet: Carb consistent Activity : as tolerated Patient to check BS 2 times a day and follow up closely with PCP Discharge Disposition: HOME SELF-CARE
--- NOTE | 2017-11-03 17:35 | PN ---
PROGRESS NOTE DATE OF SERVICE: 11/03/2017. REASON FOR FOLLOWUP: 1. Fever, possible lower respiratory infection. 2. Abnormal 2D echo. Infective endocarditis has been ruled out. INTERVAL HISTORY: The patient is currently afebrile. She is feeling better, breathing comfortably. Denies significant chest pain. Occasional cough. No abdominal pain. No diarrhea. EXAMINATION: Blood pressure 142/67 with a pulse of 58, temperature 98.2. She is 95% on room air. General description is an elderly female up in the bed in no distress. RESPIRATORY SYSTEM: Unlabored breathing. Clear to auscultation anteriorly. HEART: S1, S2. Regular rate and rhythm. ABDOMEN: Soft. No tenderness. LABS: Blood cultures have been negative. Sputum with Sydney albicans. DIAGNOSTIC IMPRESSION AND PLAN: 1. Patient admitted to the hospital with a fever, concern for possible respiratory infection with elevated procalcitonin level. Sputum has been negative for resistant pathogen. Fever responded with Rocephin. Will plan to finish therapy with oral Ceftin 500 mg twice a day for another 5 days. 2. The patient had abnormal echo, although the RACHEL was negative for any endocarditis. No need for further workup for the same. All her questions were answered. MMODL / IJN: [id number] /
== END 2017-11-03 15:00 | disposition home or self-care (01) | DRG 872 ==
LOC: EC 23:00 → 5ONC 10-30 00:58 → OBSVTOIN 10-30 10:36 → 5MS5E 10-30 14:45
PROVIDERS: ADMIT Internal Medicine; ATTEND Internal Medicine
PROC: B24BZZ4 Ultrasonography of Heart with Aorta, Transesophageal (ICD-10-PCS; principal; 2017-11-02 11:05)
DX: A41.9 Sepsis, unspecified organism (principal); E87.2 Acidosis; N17.9 Acute kidney failure, unspecified; E03.9 Hypothyroidism, unspecified; I45.10 Unspecified right bundle-branch block; E11.22 Type 2 diabetes mellitus with diabetic chronic kidney disease; I12.9 Hypertensive chronic kidney disease with stage 1 through stage 4 chronic kidney disease, or unspecified chronic kidney disease; E11.65 Type 2 diabetes mellitus with hyperglycemia; N18.9 Chronic kidney disease, unspecified; J45.909 Unspecified asthma, uncomplicated; M35.00 Sjogren syndrome, unspecified; I35.0 Nonrheumatic aortic (valve) stenosis; M17.12 Unilateral primary osteoarthritis, left knee; D46.9 Myelodysplastic syndrome, unspecified; Z80.9 Family history of malignant neoplasm, unspecified; Z79.84 Long term (current) use of oral hypoglycemic drugs; Z79.890 Hormone replacement therapy; Z79.899 Other long term (current) drug therapy; Z90.49 Acquired absence of other specified parts of digestive tract; Z79.51 Long term (current) use of inhaled steroids; Z88.0 Allergy status to penicillin
CPT/HCPCS: 36415; 36600; 71046; 80053; 81001; 82728; 82803; 82805; 83036; 83540; 83550; 83605; 84145; 84443; 85025; 85652; 86140; 87040; 87070; 87086; 87205; 87502; 93005; 93306; 93312; 93320; 93325; 94640; 96361; 96374; 99285

== ENCOUNTER → 2018-03-15 | Outpatient (CLI) | payer MEDICARE ==
--- NOTE | 2018-03-15 15:16 | CT ---
EXAMINATION TYPE: CT urogram wo/w con DATE OF EXAM: 03/15/2018 COMPARISON: None HISTORY: 68-year-old female Microscopic hematuria, found during routine lab test. TECHNIQUE: Contiguous axial scanning of the abdomen and pelvis performed without and with IV Contrast , patient injected with 80 mL of Isovue 300. Delayed images through the kidneys and bladder were obta ined. Coronal/sagittal reconstructions performed. 3-D reconstructions generated on a dedicated [employer] workstation. CT DLP: 3499.6 mGycm Automated exposure control for dose reduction was used. FINDINGS: Heart mildly enlarged without pericardial effusion. Lung bases clear without pleural effusion. Liver upper limits of normal in size at 17.8 cm. No focal liver lesion or biliary ductal dilatation. Portal venous system is patent. Cholecystectomy clips. Oval low-density mass measuring 3.8 x 2.2 cm involving the right adrenal gland shows attenuation of 9 Hounsfield units on the noncontrast series most suggestive of a benign lipid rich adrenal adenoma. Left adrenal gland and pancreas show no gross abnormality. Nonspecific 1.4 cm hypodense lesion medial spleen could represent a cyst or hemangioma. Some prominent gastrohepatic ligament lymph nodes measuring up to 9 mm, nonspecific, probably reactiv e. Otherwise, no mesenteric or retroperitoneal lymphadenopathy. No dilated small bowel, free fluid, or free air. Normal appendix. Mild stool in the left side of the colon. No pericolonic inflammatory change. Evaluation of the kidneys shows no nephrolithiasis or hydronephrosis. There is symmetric uptake and e xcretion of contrast from the kidneys without any suspicious mass. Short segments of nonopacification involving the distal right ureter. Short segment nonopacification of the distal left ureter as well. No suspicious filling defect or abnormal wall thickening is identi fied. No suspicious filling defect within the central renal collecting systems. Contrast is excreted into the bladder. No abnormal filling defects seen along the posterior half, opa cified portion of the bladder. Uterus and ovaries are visualized. 1.5 cm cyst within the right ovary of questionable clinical signif icance. Consider annual ultrasound surveillance in this postmenopausal patient. Phlebolith in the pel vis. No abnormal fluid collection in the pelvis or pelvic lymphadenopathy. Bones: Facet arthropathy lower lumbar spine with multilevel degenerative disc disease throughout. Gra de 1 anterolisthesis at L5-S1. IMPRESSION: 1. NO SUSPICIOUS RENAL LESION, NEPHROLITHIASIS, OR HYDRONEPHROSIS. NO ABNORMAL FILLING DEFECT WITHIN THE RENAL COLLECTING SYSTEM OR VISUALIZED URETERS. ONLY SHORT SEGMENTS OF THE DISTAL URETERS ARE HONEY IN NONOPACIFIED. 2. A 3.8 CM LOW DENSITY NODULE IN THE RIGHT ADRENAL GLAND. DENSITY CHARACTERISTICS SUGGEST A BENIGN L IPID RICH ADRENAL ADENOMA.
== END | disposition home or self-care (01) ==
LOC: RADCTMAIN 12:56
PROVIDERS: ATTEND Urology
DX: E27.9 Disorder of adrenal gland, unspecified (principal)
CPT/HCPCS: 82565; 84520; 74178; 36415; 74400; Q9967

== ENCOUNTER → 2018-04-13 | Outpatient (CLI) | payer MEDICARE ==
[2018-04-14 04:06] LABS: Anion Gap 9.7 mmol/L (4.00-12.00); Carbon Dioxide 22.3 mmol/L (21.6-31.8); Potassium 5.2 mmol/L (3.5-5.5)
== END | disposition home or self-care (01) ==
LOC: LABWHC1 14:43
PROVIDERS: ATTEND Urology
DX: D44.11 Neoplasm of uncertain behavior of right adrenal gland (principal)
CPT/HCPCS: 36415; 80051; 82530; 83835

== ENCOUNTER → 2018-07-01 | Outpatient (CLI) | payer MEDICARE ==
[2018-07-01 17:19] LABS: LDL Cholesterol,Calculated 102.8 mg/dL (0.0-131.0); VLDL Calculation 68.2 mg/dL (5.00-40.00)
== END | disposition home or self-care (01) ==
LOC: LABWHC1 10:50
PROVIDERS: ATTEND Nurse Practitioner Adult Health
DX: E78.5 Hyperlipidemia, unspecified (principal)
CPT/HCPCS: 36415; 80061

== ENCOUNTER → 2018-08-14 | Outpatient (CLI) | payer MEDICARE ==
[2018-08-14 14:29] LABS: HCT 35.1 % (34.0-46.0); HGB 11.2 gm/dL (11.4-16.0); MCH 29.2 pg (25.0-35.0); MCHC 31.9 g/dL (31.0-37.0); MCV 91.5 fL (80.0-100.0); Mean Platelet Volume 7.2; Platelet Count 312 k/uL (150-450); RBC 3.84 m/uL (3.80-5.40); RDW 14.6 % (11.5-15.5); WBC 9.2 k/uL (3.8-10.6)
[2018-08-14 14:38] LABS: Potassium 6.1 mmol/L (3.5-5.1)
== END | disposition home or self-care (01) ==
LOC: LABPAT 13:49
PROVIDERS: ATTEND Internal Medicine Interventional Cardiology
DX: Z01.812 Encounter for preprocedural laboratory examination (principal); I10 Essential (primary) hypertension; R06.02 Shortness of breath
CPT/HCPCS: 36415; 80051; 82565; 84520; 85027

== ENCOUNTER 2018-08-18 07:06 | Observation (INO) | payer MEDICARE ==
[~2018-08-18 07:06] MED LIST: ALPRAZolam 0.25 MG TAB PO PRN; ALPRAZolam 0.5 MG TAB PO PRN; ASPIRIN 325 MG TAB PO STA; ATORVASTATIN 80 MG TAB PO STA; NITROGLYCERIN SL TABS 0.4 MG TAB SUBLINGUAL PRN; SODIUM CHLORIDE 0.9% 1,000 ML in EMPTY BAG 1 BAG IV ONE
[2018-08-18 07:39] LABS: Glucose,Whole Blood 191 mg/dL (75-99)
[2018-08-18] MEDS ORDERED: SODIUM POLYSTYRENE SULFONATE 15 GM/60 ML BOTTLE PO STA (10:32)
[2018-08-18] MEDS ORDERED: INSULIN REGULAR 100 UNIT/ML VIAL IV ONE (10:40)
[2018-08-18 10:45] LABS: Glucose,Whole Blood 211 mg/dL (75-99)
[2018-08-18 14:01] LABS: Glucose,Whole Blood 179 mg/dL (75-99)
[2018-08-18] MEDS ORDERED: FUROSEMIDE 10 MG/ML 4 ML VIAL IV STA (15:09)
[2018-08-18 17:03] LABS: Glucose,Whole Blood 175 mg/dL (75-99)
[2018-08-18] MEDS ORDERED: SODIUM CHLORIDE 0.9% 1,000 ML IV SCH (17:45)
[2018-08-18 19:10] VITALS: BMI 39.3
[2018-08-18] MEDS ORDERED: LOPERAMIDE 2 MG CAP PO PRN (19:11)
[2018-08-18] MEDS ORDERED: ALBUTEROL NEBULIZED 2.5 MG/3 ML INHALATION PRN (19:11)
[2018-08-18] MEDS ORDERED: DICLOFENAC SODIUM GEL 100 GM TUBE TOPICAL PRN (19:11)
[2018-08-18] MEDS ORDERED: ACETAMINOPHEN TAB 325 MG TAB PO PRN (19:11)
[2018-08-18] MEDS ORDERED: FLUTICASONE 50MCG/SPRAY NASAL 16GM EA NOSTRIL PRN (19:11)
[2018-08-18] MEDS ORDERED: PEG BOTH EYES PRN (19:11)
[2018-08-18] MEDS ORDERED: PROPYLENE GLYCOL BOTH EYES PRN (19:11)
[2018-08-18 19:14] LABS: Basophils % (A) 1 %; Eosinophils # (A) 0.2 k/uL (0-0.7); Eosinophils % (A) 3 %; HCT 35.3 % (34.0-46.0); Lymphocytes # (A) 1.2 k/uL (1.0-4.8); Lymphocytes % (A) 16 %; MCH 29.1 pg (25.0-35.0); MCHC 31.2 g/dL (31.0-37.0); MCV 93.3 fL (80.0-100.0); Mean Platelet Volume 7.1; Monocytes # (A) 0.3 k/uL (0-1.0); Monocytes % (A) 5 %; Neutrophils # (A) 5.5 k/uL (1.3-7.7); Neutrophils % (A) 74 %; Platelet Count 269 k/uL (150-450); RBC 3.78 m/uL (3.80-5.40); RDW 14.9 % (11.5-15.5); WBC 7.4 k/uL (3.8-10.6)
--- NOTE | 2018-08-18 19:42 | US ---
EXAMINATION TYPE: US renals and bladder DATE OF EXAM: 08/18/2018 COMPARISON: NONE CLINICAL HISTORY: rf. Hematuria, renal failure EXAM MEASUREMENTS: Right Kidney: 10.7 x 5.0 x 5.5 cm Left Kidney: 10.1 x 5.3 x 5.4 cm Right Kidney: no evidence of hydronephrosis Left Kidney: no evidence of hydronephrosis Bladder: not fully distended Bilateral Jets seen: no Incidental finding: possible hyperechoic area = 2.1cm and cystic area = 1.8cm within spleen There is no evidence for hydronephrosis at this point in time. No nephrolithiasis is seen. No guanako s are identified. The urinary bladder is anechoic. Bilateral ureteral jets are seen. IMPRESSION: No evidence of renal mass or obstruction. Splenic cyst noted. Ureteral jets were not seen but there w as no hydronephrosis.
[2018-08-18 20:00] LABS: Calcium 9.1 mg/dL (8.4-10.2); Potassium 5.3 mmol/L (3.5-5.1)
[2018-08-18] MEDS: PILOCARPINE 5 MG TAB PO SCH (20:33)
[2018-08-18] MEDS: METOPROLOL TARTRATE 25 MG TAB PO SCH (20:33)
[2018-08-18] MEDS: glipiZIDE 10 MG TAB PO SCH (20:34)
[2018-08-18 21:04] LABS: Glucose,Whole Blood 229 mg/dL (75-99)
[2018-08-18 21:25] LABS: Appearance,Urine Clear (Clear); Bacteria,Urine Rare /hpf; Bilirubin,Urine Negative (Negative); Blood,Urine Negative (Negative); Color,Urine Colorless; Glucose,Urine (UA) Negative (Negative); Hyaline Casts,Urine 9 /lpf (0-2); Ketones,Urine Negative (Negative); Leukocyte Esterase,Urine Negative (Negative); Mucus,Urine Rare /hpf; Nitrite,Urine Negative (Negative); Protein,Urine 1+ (Negative); RBC,Urine 1 /hpf (0-5); Specific Gravity,Urine 1.011 (1.001-1.035); Squamous Epithelial Cell,Urine 1 /hpf (0-4); Urobilinogen,Urine <2.0 mg/dL (<2.0); WBC,Urine 1 /hpf (0-5)
[2018-08-19 05:48] LABS: Glucose,Whole Blood 142 mg/dL (75-99)
[2018-08-19] MEDS ORDERED: LEVOTHYROXINE 50 MCG TAB PO SCH (06:30)
--- NOTE | 2018-08-19 07:31 | CONS ---
CONSULTATION REASON FOR CONSULT: Renal failure, hyperkalemia. HISTORY OF PRESENT ILLNESS: Patient is a 68-year-old female who came into the hospital for an elective cardiac catheterization by Dr. Lira. However, the procedure was held as her labs showed a serum potassium of 6.0. This morning, the patient's serum creatinine was 1.9, and review of previous labs shows a creatinine of 1.7 on 08/14/2018, and creatinine 1.43 on 03/15/2018. In 2016, we have a creatinine of 1.10. The patient denies any history of any significant kidney disease. However, she states she has been told that the kidney function was at borderline. There is no prior history of hyperkalemia, although we do have a potassium of 6.1 on 08/14/2018 as well. The patient admitted to history of use of nonsteroidal anti-inflammatory agents. She is also maintained on lisinopril at home. This was held for about a day prior to admission in anticipation for the cardiac catheterization. Blood pressure has not been low. I gave her Kayexalate this morning and we also gave her insulin as blood sugar was high at 191 mg/dL. Repeat potassium did not improve. In fact it stayed at 6.1, and therefore patient is being admitted. She has not had a bowel movement yet with the Kayexalate. The patient denies any significant urinary symptoms. She did admit to history of hematuria for which she has been seen by Urology. PAST MEDICAL HISTORY: Diabetes, hypertension, osteoarthritis, hypothyroidism. The patient also has history of mitral valve prolapse. PAST SURGICAL HISTORY: Cholecystectomy, cardiac catheterization, tonsillectomy, right knee surgery, cystoscopy. SOCIAL HISTORY: Negative for smoking, drug abuse or alcohol abuse. MEDICATIONS: Medications at home prior to admission included Glucotrol, Paxil, Lopressor, Imodium, Victoza, Advair, Synthroid, iron, Lanoxin, Voltaren, aspirin. ALLERGIES: INCLUDE CIPRO, WHICH CAUSES SHORTNESS OF BREATH AND PENICILLIN WHICH CAUSES RASH AND HIVES. REVIEW OF SYSTEMS: As per HPI. Other systems negative. PHYSICAL EXAMINATION: On examination patient is currently comfortable, awake, alert, and oriented x3. She is not in any acute distress. Blood pressure this morning was 124/56, heart rate 64 per minute. Patient is afebrile. Examination of the heart S1, S2. Examination of the lungs bilateral breath sounds are heard. Abdomen is soft, obese, nontender. Exam of lower extremities shows no significant edema. [employer] exam is grossly intact. LABORATORY DATA: Labs show sodium 130, potassium 6.0, creatinine 1.9, BUN 54. Other labs are not available. ASSESSMENT: 1. Acute kidney injury, possibly prerenal. Continue with IV fluids. Continue to hold off on DIANA inhibitors. We will check a urinalysis and ultrasound of the kidneys. Initially the plan was to see the patient as outpatient and discharge her if her potassium came down. However, since she remains hyperkalemic, they have decided to keep her overnight. In the meantime, an urinalysis and ultrasound of the kidneys will be ordered as well. 2. Hyperkalemia associated with acute kidney injury and possible type 4 RTA. We will obtain a complete basic metabolic panel tonight and in a.m. Continue off of DIANA inhibitors. Control blood sugars as hyperglycemia potentiates the hyperkalemia. Avoid constipation. I will also give a dose of IV Lasix. 3. Chronic kidney disease NKF stage III, with previous creatinine about 1.6 mg/dL. Previous UA in October of 2017 did show evidence of 2+ protein. Therefore, patient likely has underlying diabetic nephropathy. 4. Mitral valve prolapse. 5. Hypothyroidism. 6. Dyslipidemia. PLAN: Continue IV fluids. IV Lasix x1. Check BMP tonight and in a.m. along with CBC. Check UA and check ultrasound of the kidneys. Continue to hold off on DIANA inhibitors for now. Thank you for this consultation. We will continue to follow the patient with you during her hospitalization. MMODL / IJN: [id number] /
[2018-08-19] MEDS: glipiZIDE 10 MG TAB PO SCH (08:33)
[2018-08-19] MEDS: METOPROLOL TARTRATE 25 MG TAB PO SCH (08:33)
[2018-08-19 08:38] LABS: Basophils % (A) 1 %; Eosinophils # (A) 0.2 k/uL (0-0.7); Eosinophils % (A) 3 %; HCT 35.4 % (34.0-46.0); Lymphocytes # (A) 1.3 k/uL (1.0-4.8); Lymphocytes % (A) 17 %; MCH 28.9 pg (25.0-35.0); MCHC 31.1 g/dL (31.0-37.0); MCV 92.9 fL (80.0-100.0); Mean Platelet Volume 7.4; Monocytes # (A) 0.4 k/uL (0-1.0); Monocytes % (A) 5 %; Neutrophils # (A) 5.1 k/uL (1.3-7.7); Neutrophils % (A) 70 %; Platelet Count 247 k/uL (150-450); RBC 3.81 m/uL (3.80-5.40); RDW 14.8 % (11.5-15.5); WBC 7.2 k/uL (3.8-10.6)
[2018-08-19 09:00] LABS: Albumin 3.4 g/dL (3.5-5.0); Calcium 9.2 mg/dL (8.4-10.2); Potassium 5.3 mmol/L (3.5-5.1); Total Bilirubin 0.8 mg/dL (0.2-1.3); Total Protein 6.4 g/dL (6.3-8.2)
[2018-08-19] MEDS ORDERED: PARoxetine 20 MG TAB PO SCH (09:00)
[2018-08-19] MEDS ORDERED: ASPIRIN 325 MG TAB PO SCH (09:00)
[2018-08-19] MEDS ORDERED: FERROUS SULFATE 325 MG TAB PO SCH (09:00)
[2018-08-19] MEDS: PILOCARPINE 5 MG TAB PO SCH (11:18)
[2018-08-19 11:27] LABS: Glucose,Whole Blood 354 mg/dL (75-99)
[2018-08-19 14:43] VITALS: RESP 14
[2018-08-19 14:47] VITALS: BP 134/92; PULSE 77; TEMP 97.9
--- NOTE | 2018-08-19 14:48 | P.HPIM ---
History of Present Illness H&P Date: 08/19/18 Chief Complaint: Elevated potassium level Amelia Underwood is a 68-year-old female patient of [facility] who presented to the hospital for elective cardiac catheterization he was found to have elevated potassium level of 6.1 procedure was canceled and patient was admi tted to telemetry floor for further evaluation and treatment of acute on chronic renal failure and hyperkalemia she was given Kayexalate nephrology consultation was requested. Patient has a known history of diabetes mellitus, she states that she is unaware of having any kidney problems however her creatinine level has been increasing over the last 2 years. She also has a known history of hypertension, hypothyroidism, osteoarthritis , depression and anxiety disorder. Past Medical History Past Medical History: Asthma, Diabetes Mellitus, Hypertension, Mitral Valve Prolapse (MVP), Osteoarthritis (OA), Supraventricular Tachycardia (SVT), Thyroid Disorder Additional Past Medical History / Comment(s): frequent diarrhea, anemia, sjo grens, History of Any Multi-Drug Resistant Organisms: None Reported Past Surgical History: Cholecystectomy, Heart Catheterization, Orthopedic Surgery, Tonsillectomy Additional Past Surgical History / Comment(s): rt knee surgery Past Anesthesia/Blood Transfusion Reactions: Previous Problems w/ Anesthesia Additional Past Anesthesia/Blood Transfusion Reaction / Comment(s): states woke up during surgery Past Psychological History: No Psychological Hx Reported Smoking Status: Never smoker Past Alcohol Use History: None Reported Past Drug Use History: None Reported - Past Family History Mother Family Medical History: Cancer Brother(s) Family Medical History: Pulmonary Embolus Medications and Allergies Home Medications Medication Instructions Recorded Confirmed Type Digoxin [Lanoxin] 250 mcg PO DAILY 10/28/15 08/18/18 History Fluticasone/Salmeterol [Advair 1 puff INHALATION RT-DAILY PRN 10/28/15 08/18/18 History 250-50 Diskus] Metoprolol Tartrate [Lopressor] 12.5 mg PO BID 10/28/15 08/18/18 History PARoxetine [Paxil] 20 mg PO DAILY 10/28/15 08/18/18 History Pilocarpine [Salagen] 7.5 mg PO TID 10/28/15 08/18/18 History Albuterol Nebulized [Ventolin 2.5 mg INHALATION RT-DAILY PRN 10/30/17 08/18/18 History Nebulized] Biotene Oral Balance Gel 1 applic MM DAILY PRN 10/30/17 08/18/18 History Diclofenac Sodium [Voltaren Gel] 1 gram TOPICAL DAILY PRN 10/30/17 08/18/18 History Fluticasone Nasal [place] [Flonase 1 spr EA NOSTRIL DAILY PRN 10/30/17 08/18/18 History Nasal [place]] Loperamide [Imodium] 2 mg PO QID PRN 10/30/17 08/18/18 History Propylene Glycol/Peg 400/Pf 1 drop BOTH EYES DAILY PRN 10/30/17 08/18/18 History [Systane 0.3-0.4% Eye Drop] glipiZIDE [Glucotrol] 10 mg PO BID #30 tab 11/03/17 08/18/18 Rx Acetaminophen Tab [Tylenol] 325 mg PO Q6H PRN 08/17/18 08/18/18 History Aspirin 325 mg PO DAILY 08/17/18 08/18/18 History Ferrous Sulfate [Iron (65 MG 325 mg PO DAILY 08/17/18 08/18/18 History Elemental)] Levothyroxine Sodium [Synthroid] 50 mcg PO DAILY 08/17/18 08/18/18 History Liraglutide [Victoza 2-Jacky] 1.8 mg SQ DAILY 08/17/18 08/18/18 History Sodium Bicarbonate Tab 650 mg PO BID tab 08/19/18 Rx Allergies Allergy/AdvReac Type Severity Reaction Status Date / Time ciprofloxacin [From Cipro] Allergy shortnes Verified 08/18/18 16:44 of breath Penicillins Allergy Rash/Hives Verified 08/18/18 16:44 Physical Exam Vitals: Vital Signs Temp Pulse Resp BP BP Pulse Ox 08/19/18 03:30 98 F 64 16 111/61 95 08/18/18 23:15 97.9 F 72 18 131/67 98 08/18/18 19:30 98 F 76 18 146/69 97 08/18/18 15:15 70 18 178/77 Intake and Output 08/18/18 08/19/18 08/19/18 22:59 06:59 14:59 Intake Total 1040 222 Output Total 500 Balance 540 222 Intake: IV 800 Sodium Chloride 0.9% 1, 800 000 ml In Empty Bag 1 bag @ 100 mls/hr IV .Q10H ONE Rx#:[id number] Oral 240 222 Output: Urine 500 Other: # Voids 1 1 Weight 99.1 kg In general patient is alert and oriented 3 in no apparent distress HEENT head normocephalic and atraumatic Neck is supple no JVD no goiter no lymphadenopathy Chest exam reveals a few scattered crackles no wheezing Cardiac exam reveals regular heart sounds S1 and S2 no gallops no murmurs Abdomen is soft nontender no organomegaly with normal bowel sounds Extremity exam reveals no edema no cyanosis or clubbing Results CBC & Chem 7: 08/19/18 08:12 08/19/18 08:12 Labs: Abnormal Lab Results - Last 24 Hours (Table) 08/18/18 08/18/18 08/18/18 Range/Units 14:00 16:59 18:48 RBC (3.80-5.40) m/uL Hgb (11.4-16.0) gm/dL Potassium 6.1 H* 5.3 H (3.5-5.1) mmol/L Chloride 108 H (98-107) mmol/L Carbon Dioxide 19 L (22-30) mmol/L BUN 49 H (7-17) mg/dL Creatinine 2.01 H (0.52-1.04) mg/dL Glucose 211 H (74-99) mg/dL POC Glucose (mg/dL) 175 H (75-99) mg/dL AST (14-36) U/L ALT (9-52) U/L Albumin (3.5-5.0) g/dL Urine Protein (Negative) Urine Bacteria (None) /hpf Hyaline Casts (0-2) /lpf Urine Mucus (None) /hpf 08/18/18 08/18/18 08/18/18 Range/Units 18:48 21:00 21:04 RBC 3.78 L (3.80-5.40) m/uL Hgb 11.0 L (11.4-16.0) gm/dL Potassium (3.5-5.1) mmol/L Chloride (98-107) mmol/L Carbon Dioxide (22-30) mmol/L BUN (7-17) mg/dL Creatinine (0.52-1.04) mg/dL Glucose (74-99) mg/dL POC Glucose (mg/dL) 229 H (75-99) mg/dL AST (14-36) U/L ALT (9-52) U/L Albumin (3.5-5.0) g/dL Urine Protein 1+ H (Negative) Urine Bacteria Rare H (None) /hpf Hyaline Casts 9 H (0-2) /lpf Urine Mucus Rare H (None) /hpf 08/19/18 08/19/18 08/19/18 Range/Units 05:44 08:12 08:12 RBC (3.80-5.40) m/uL Hgb 11.0 L (11.4-16.0) gm/dL Potassium 5.3 H (3.5-5.1) mmol/L Chloride 114 H (98-107) mmol/L Carbon Dioxide 20 L (22-30) mmol/L BUN 46 H (7-17) mg/dL Creatinine 1.79 H (0.52-1.04) mg/dL Glucose 147 H (74-99) mg/dL POC Glucose (mg/dL) 142 H (75-99) mg/dL AST 45 H (14-36) U/L ALT 54 H (9-52) U/L Albumin 3.4 L (3.5-5.0) g/dL Urine Protein (Negative) Urine Bacteria (None) /hpf Hyaline Casts (0-2) /lpf Urine Mucus (None) /hpf 08/19/18 Range/Units 11:26 RBC (3.80-5.40) m/uL Hgb (11.4-16.0) gm/dL Potassium (3.5-5.1) mmol/L Chloride (98-107) mmol/L Carbon Dioxide (22-30) mmol/L BUN (7-17) mg/dL Creatinine (0.52-1.04) mg/dL Glucose (74-99) mg/dL POC Glucose (mg/dL) 354 H (75-99) mg/dL AST (14-36) U/L ALT (9-52) U/L Albumin (3.5-5.0) g/dL Urine Protein (Negative) Urine Bacteria (None) /hpf Hyaline Casts (0-2) /lpf Urine Mucus (None) /hpf Thrombosis Risk Factor Assmnt - Choose All That Apply Each Factor Represents 1 point: Obesity (BMI >25) Each Risk Factor Represents 2 Points: Age 61-74 years Thrombosis Risk Factor Assessment Total Risk Factor Score: 3 Thrombosis Risk Factor Assessment Level: Moderate Risk Assessment and Plan Plan: #1 severe hyperkalemia #2 acute on chronic renal failure #3 chronic kidney disease stage III #4 [id number] diabetes mellitus #5 underlying history of osteoarthritis #6 underlying history of anemia #7 underlying history of hypertension #8 underlying history of depression with anxiety disorder At this time patient is admitted to telemetry floor, she was given Kayexalate Lisinopril was discontinued Digoxin was held will check dig level Nephrology consultation following Recheck labs in a.m.
--- NOTE | 2018-08-19 14:55 | P.DS ---
Providers Date of admission: 08/18/18 16:30 Expected date of discharge: 08/19/18 Attending physician: Pat Mederos Consults: 08/18/18 10:00 Consult Physician Urgent Consulting Provider: Roseline Banks Consult Reason/Comments: renal failure/hyperkalemia Do you want consulting provider notified?: Already Contacted Primary care physician: Zainab Zuleta Hospital Course: Diagnoses on discharge: #1 severe hyperkalemia #2 acute on chronic renal failure #3 chronic kidney disease stage III #4 [id number] diabetes mellitus #5 underlying history of osteoarthritis #6 underlying history of anemia #7 underlying history of hypertension #8 underlying history of depression with anxiety disorder Hospital course: Amelia Underwood is a 68-year-old female patient of [facility] who presented to the hospital for elective cardiac catheterization he was found to have elevated potassium level of 6.1 procedure was canceled and patient was admitted to telemetry floor for further evaluation and treatment of acute on chronic renal failure and hyperkalemia she was given Kayexalate nephrology consultation was requested. Patient has a known history of diabetes mellitus, she states that she is unaware of having any kidney problems however her creatinine level has been increasing over the last 2 years. She also has a known history of hypertension, hypothyroidism, osteoarthritis , depression and anxiety disorder. On 08/19/2018 Patient was seen and examined on the telemetry floor she is doing well and is asymptomatic, her potassium level is down to 5.3, she was evaluated by nephrology and was cleared for discharge, she will be followed by nephrology on Tuesday, she will also be followed by cardiology for rescheduling of her cardiac catheterization. During this admission digoxin was held and this level was ordered this is still pending patient does not have any evidence of digoxin toxicity however dish level has to be followed as outpatient and digoxin dose need to be adjusted in view of her chronic kidney disease and elevated BUN and creatinine. At this time she will be started continued on her same dose of 0.25 mg. During this admission lisinopril was held, she will not be restarted on fosinopril at this point. During this admission sodium bicarb 650 mg by mouth twice daily was added she was given prescription to continue on that as outpatient Follow-up with her primary care physician at [facility] in 2-3 days Plan - Discharge Summary Discharge Rx Participant: No New Discharge Prescriptions: New Sodium Bicarbonate Tab 650 mg PO BID tab Continue Pilocarpine [Salagen] 7.5 mg PO TID PARoxetine [Paxil] 20 mg PO DAILY Metoprolol Tartrate [Lopressor] 12.5 mg PO BID Digoxin [Lanoxin] 250 mcg PO DAILY Fluticasone/Salmeterol [Advair 250-50 Diskus] 1 puff INHALATION RT-DAILY PRN PRN Reason: Shortness Of Breath Propylene Glycol/Peg 400/Pf [Systane 0.3-0.4% Eye Drop] 1 drop BOTH EYES DAILY PRN PRN Reason: DRY EYES Loperamide [Imodium] 2 mg PO QID PRN PRN Reason: Loose Stool Albuterol Nebulized [Ventolin Nebulized] 2.5 mg INHALATION RT-DAILY PRN PRN Reason: Shortness Of Breath Fluticasone Nasal [place] [Flonase Nasal [place]] 1 spr EA NOSTRIL DAILY PRN PRN Reason: Allergy Symptoms Biotene Oral Balance Gel 1 applic MM DAILY PRN PRN Reason: Dry Mouth Diclofenac Sodium [Voltaren Gel] 1 gram TOPICAL DAILY PRN PRN Reason: Pain glipiZIDE [Glucotrol] 10 mg PO BID #30 tab Levothyroxine Sodium [Synthroid] 50 mcg PO DAILY Liraglutide [Victoza 2-Jacky] 1.8 mg SQ DAILY Ferrous Sulfate [Iron (65 MG Elemental)] 325 mg PO DAILY Aspirin 325 mg PO DAILY Acetaminophen Tab [Tylenol] 325 mg PO Q6H PRN PRN Reason: Pain Discharge Medication List Digoxin [Lanoxin] 250 mcg PO DAILY 10/28/15 [History] Fluticasone/Salmeterol [Advair 250-50 Diskus] 1 puff INHALATION RT-DAILY PRN 10/28/15 [History] Metoprolol Tartrate [Lopressor] 12.5 mg PO BID 10/28/15 [History] PARoxetine [Paxil] 20 mg PO DAILY 10/28/15 [History] Pilocarpine [Salagen] 7.5 mg PO TID 10/28/15 [History] Albuterol Nebulized [Ventolin Nebulized] 2.5 mg INHALATION RT-DAILY PRN 10/30/17 [History] Biotene Oral Balance Gel 1 applic MM DAILY PRN 10/30/17 [History] Diclofenac Sodium [Voltaren Gel] 1 gram TOPICAL DAILY PRN 10/30/17 [History] Fluticasone Nasal [place] [Flonase Nasal [place]] 1 spr EA NOSTRIL DAILY PRN 10/30/17 [History] Loperamide [Imodium] 2 mg PO QID PRN 10/30/17 [History] Propylene Glycol/Peg 400/Pf [Systane 0.3-0.4% Eye Drop] 1 drop BOTH EYES DAILY PRN 10/30/17 [History] glipiZIDE [Glucotrol] 10 mg PO BID #30 tab 11/03/17 [Rx] Acetaminophen Tab [Tylenol] 325 mg PO Q6H PRN 08/17/18 [History] Aspirin 325 mg PO DAILY 08/17/18 [History] Ferrous Sulfate [Iron (65 MG Elemental)] 325 mg PO DAILY 08/17/18 [History] Levothyroxine Sodium [Synthroid] 50 mcg PO DAILY 08/17/18 [History] Liraglutide [Victoza 2-Jacky] 1.8 mg SQ DAILY 08/17/18 [History] Sodium Bicarbonate Tab 650 mg PO BID tab 08/19/18 [Rx] Follow up Appointment(s)/Referral(s): Roseline Banks MD [STAFF PHYSICIAN] - 08/22/18 12:15 pm Cr Lira MD [STAFF PHYSICIAN] - 1 Week Zainab Zuleta DO [Primary Care Provider] - 1 Week Patient Instructions/Handouts: Acute Kidney Injury (DC), Hyperkalemia (DC)
--- NOTE | 2018-08-19 16:19 | PN ---
PROGRESS NOTE Patient is seen for followup for acute kidney injury and hyperkalemia. The patient was admitted as she was noticed to have a potassium of 6 prior to cardiac catheterization, which was held. His serum creatinine was 1.9, which was up from her baseline of about 1.4 to 1.6 as of March of 2018. The patient received Kayexalate and insulin as her blood sugar was also elevated. Serum potassium did not improve and therefore she was admitted. It did come down to 5.3 yesterday and this morning it remains at 5.3. The patient can be discharged from nephrology standpoint. She will follow up as outpatient. The patient has been advised to continue to avoid the use of NSAIDs as well as DIANA inhibitors for now. PHYSICAL EXAMINATION: On examination this morning, blood pressure was 111/61, heart rate 64 per minute. She is afebrile. EXAMINATION OF THE HEART: S1, S2. EXAMINATION OF THE LUNGS: Bilateral breath sounds are heard. Abdomen is soft, nontender. Examination of the lower extremities shows no evidence of edema. COLLECTION CORRESPONDENT exam is grossly intact. LAB: Labs show sodium 141, potassium 5.3, chloride 114, BUN 46, serum creatinine 1.79. UA shows 1+ protein. Hemoglobin 11.0 g/dL. ASSESSMENT: 1. Acute kidney injury, possibly prerenal, currently improved. The patient has been maintained on IV fluids. Serum creatinine did go up to 2 yesterday post diuresis. This morning it back down to 1.79. The patient can be discharged from nephrology standpoint. Her UA is fairly benign and ultrasound does not reveal any significant abnormalities. 2. Chronic kidney disease secondary to underlying diabetic nephropathy. Baseline creatinine 1.4 mg/dL. NKF stage 3. Hold off on the DIANA inhibitors for now. We will resume the DIANA inhibitors down the road as outpatient once the hyperkalemia has resolved. 3. Hyperkalemia associated with acute kidney injury and possible underlying type 4 RTA given the mild metabolic acidosis. I will add sodium bicarb as well, which will help with the hyperkalemia. The patient is advised to avoid high potassium containing foods. She is also advised regarding need to control blood sugars to prevent exacerbation of hyperkalemia. PLAN: Patient is stable for discharge. Continue to avoid NSAIDs. Continue to hold off on DIANA inhibitors. Add oral sodium bicarb. Follow up as outpatient. MMODL / IJN: [id number] /
[2018-08-19] MEDS ORDERED: SODIUM BICARBONATE TAB 650 MG TAB PO SCH (21:00)
== END 2018-08-19 15:39 | disposition home or self-care (01) ==
LOC: CATHCVL 07:06 → INTOOBSV 16:30 → 3SCARD 16:30 → UNDOADMIN 16:30 → UNDODISIN 08-19 15:39
PROVIDERS: ADMIT Internal Medicine; ATTEND Internal Medicine
DX: E87.5 Hyperkalemia (principal); N17.9 Acute kidney failure, unspecified; I12.9 Hypertensive chronic kidney disease with stage 1 through stage 4 chronic kidney disease, or unspecified chronic kidney disease; N18.3 Chronic kidney disease, stage 3 (moderate); E87.2 Acidosis; E11.21 Type 2 diabetes mellitus with diabetic nephropathy; E11.22 Type 2 diabetes mellitus with diabetic chronic kidney disease; E11.65 Type 2 diabetes mellitus with hyperglycemia; I47.1 Supraventricular tachycardia; I08.3 Combined rheumatic disorders of mitral, aortic and tricuspid valves; M35.00 Sjogren syndrome, unspecified; E03.9 Hypothyroidism, unspecified; E78.5 Hyperlipidemia, unspecified; J45.909 Unspecified asthma, uncomplicated; M19.90 Unspecified osteoarthritis, unspecified site; F41.8 Other specified anxiety disorders; D64.9 Anemia, unspecified; E66.9 Obesity, unspecified; Z68.38 Body mass index [BMI] 38.0-38.9, adult; Z79.82 Long term (current) use of aspirin; Z79.84 Long term (current) use of oral hypoglycemic drugs; Z79.890 Hormone replacement therapy; Z79.899 Other long term (current) drug therapy; Z88.0 Allergy status to penicillin; Z88.1 Allergy status to other antibiotic agents; Z88.2 Allergy status to sulfonamides; Z90.49 Acquired absence of other specified parts of digestive tract; Z80.9 Family history of malignant neoplasm, unspecified; Z82.49 Family history of ischemic heart disease and other diseases of the circulatory system; Z53.9 Procedure and treatment not carried out, unspecified reason
CPT/HCPCS: 96374; 80053; 80048; 82565; 84132; 84520; 85025 ×2; 81001; 76770; G0378 ×2; J1940

== ENCOUNTER → 2018-09-05 | Outpatient (CLI) | payer MEDICARE ==
[2018-09-05 14:53] LABS: HCT 35.8 % (34.0-46.0); HGB 11.5 gm/dL (11.4-16.0); MCH 29.2 pg (25.0-35.0); MCHC 32.1 g/dL (31.0-37.0); MCV 90.9 fL (80.0-100.0); Mean Platelet Volume 6.8; Platelet Count 280 k/uL (150-450); RBC 3.94 m/uL (3.80-5.40); RDW 14.3 % (11.5-15.5); WBC 8.7 k/uL (3.8-10.6)
[2018-09-05 19:28] LABS: Albumin 3.9 g/dL (3.80-4.90); Albumin/Globulin Ratio 1.77 (1.60-3.17); Anion Gap 7.9 mmol/L (4.00-12.00); Calcium 9.3 mg/dL (8.7-10.3); Carbon Dioxide 22.1 mmol/L (21.6-31.8); Globulin 2.2 g/dL (1.6-3.3); Potassium 4.4 mmol/L (3.5-5.5); Total Bilirubin 0.7 mg/dL (0.3-1.2); Total Protein 6.1 g/dL (6.2-8.2)
== END | disposition home or self-care (01) ==
LOC: LABWHC1 13:45
PROVIDERS: ATTEND Physician Assistant
DX: N18.4 Chronic kidney disease, stage 4 (severe) (principal); D63.1 Anemia in chronic kidney disease
CPT/HCPCS: 36415; 80053; 85027

== ENCOUNTER 2020-06-18 06:40 | Emergency (ER) | payer MEDICARE ==
[2020-06-18 06:46] VITALS: RESP 18; TEMP 99.2
[2020-06-18] MEDS ORDERED: ACETAMINOPHEN TAB 325 MG TAB PO STA (07:05)
--- NOTE | 2020-06-18 07:16 | ED ---
Extremity Problem HPI - General Source: patient, RN notes reviewed Mode of arrival: wheelchair Limitations: no limitations - History of Present Illness MD Complaint: extremity pain -: hour(s) Location: left Radiation: other (pain from behind left knee to medial aspect with flexion) Severity scale (1-10): 9 Quality: sharp Consistency: intermittent Improves with: immobilization, rest Worsens with: other (flexion) <Ney Penaloza - Last Filed: 06/18/20 08:39> <Hillary Blair - Last Filed: 06/24/20 23:53> - General Chief complaint: Extremity Problem,Nontraumatic Stated complaint: Left leg pain Time Seen by Provider: 06/18/20 06:48 - History of Present Illness Initial comments: 70-year-old white female patient presents to the emergency room with male family member complaining of acute onset of left knee pain at 2 AM when she sat down on the toilet. She states she felt a pop behind the left knee. Patient states she took a half regular strength Tylenol with some relief 5 AM. Patient states only took half the Tylenol related to being told not to take too much pain medication because they could damage her kidneys. Patient has history of arthritis in both knees, surgery when she was younger on right knee for bone spur. Patient currently wearing a neoprene brace to the left knee with some bruising to the anterior knee she states likely related to her spider veins and tight brace. Patient ambulates at home with cane. Patient with a history of insulin- dependent diabetes, hypertension, hypercholesterolemia, mitral valve prolapse, and aortic stenosis. Patient is due to see her primary care doctor Dr. Salazar has not made an appointment related to covid. (Ney Penaloza) - Related Data Home Medications Medication Instructions Recorded Confirmed Metoprolol Tartrate [Lopressor] 25 mg PO BID 10/28/15 06/18/20 PARoxetine [Paxil] 20 mg PO DAILY 10/28/15 06/18/20 Fluticasone Nasal [place] [Flonase 1 spr EA NOSTRIL DAILY PRN 10/30/17 06/18/20 Nasal [place]] Acetaminophen Tab [Tylenol] 325 mg PO Q6H PRN 08/17/18 06/18/20 Ferrous Sulfate [Iron (65 MG 325 mg PO DAILY 05/09/19 03/10/21 Elemental)] Liraglutide [Victoza 2-Jacky] 1.8 mg SQ DAILY 08/17/18 06/18/20 lisinopriL [Prinivil] 5 mg PO DAILY 04/30/19 06/18/20 Albuterol Inhaler [Ventolin Hfa 1 puff INHALATION RT-Q4H PRN 06/18/20 06/18/20 Inhaler] Ergocalciferol [Vitamin D2 (1250 1,250 mcg PO TH 06/18/20 06/18/20 Mcg = 38768 Iu)] Fluticasone Propion/Salmeterol 1 puff INHALATION RT-BID 06/18/20 06/18/20 [Wixela 250-50 Inhub] Insulin Degludec [Tresiba 24 units SQ DAILY@1200 06/18/20 06/18/20 Flextouch U-100] Rosuvastatin [Crestor] 10 mg PO DAILY 06/18/20 06/18/20 Allergies Allergy/AdvReac Type Severity Reaction Status Date / Time ciprofloxacin [From Cipro] Allergy shortnes Verified 06/18/20 07:50 of breath Penicillins Allergy Rash/Hives Verified 06/18/20 07:50 sulfamethoxazole Allergy SHORTNESS Verified 06/18/20 07:54 [From Bactrim] OF BREATH trimethoprim [From Bactrim] Allergy SHORTNESS Verified 06/18/20 07:54 OF BREATH Review of Systems ROS Other: All systems not noted in ROS Statement are negative. Constitutional: Denies: fever, chills Respiratory: Denies: cough, dyspnea Cardiovascular: Denies: chest pain Musculoskeletal: Reports: arthralgia Skin: Reports: other (bruising to right anterior knee) <Ney Penaloza - Last Filed: 06/18/20 08:39> ROS Other: All systems not noted in ROS Statement are negative. <Hillary Blair - Last Filed: 06/24/20 23:53> ROS Statement: Those systems with pertinent positive or pertinent negative responses have been documented in the HPI. Past Medical History Past Medical History: Asthma, Diabetes Mellitus, Hypertension, Mitral Valve Prolapse (MVP), Osteoarthritis (OA), Supraventricular Tachycardia (SVT), Thyroid Disorder Additional Past Medical History / Comment(s): diarrhea, anemia, sjogrens, History of Any Multi-Drug Resistant Organisms: None Reported Past Surgical History: Cholecystectomy, Heart Catheterization, Orthopedic Surgery, Tonsillectomy Additional Past Surgical History / Comment(s): rt knee surgery Past Anesthesia/Blood Transfusion Reactions: No Reported Reaction Additional Past Anesthesia/Blood Transfusion Reaction / Comment(s): states woke up during surgery Past Psychological History: Anxiety Smoking Status: Never smoker Past Alcohol Use History: None Reported Past Drug Use History: None Reported - Past Family History Mother Family Medical History: Cancer Brother(s) Family Medical History: Pulmonary Embolus <Ney Penaloza - Last Filed: 06/18/20 08:39> General Exam Limitations: no limitations General appearance: alert, in no apparent distress Head exam: Present: atraumatic, normocephalic, normal inspection Eye exam: Present: normal appearance, PERRL, EOMI. Absent: scleral icterus, conjunctival injection, periorbital swelling ENT exam: Present: normal exam Neck exam: Present: normal inspection. Absent: tenderness, meningismus, lymphadenopathy Respiratory exam: Present: normal lung sounds bilaterally. Absent: respiratory distress, wheezes, rales, rhonchi, stridor Cardiovascular Exam: Present: regular rate, normal rhythm, normal heart sounds. Absent: bradycardia, tachycardia, systolic murmur, diastolic murmur, rubs, gallop, clicks, JVD GI/Abdominal exam: Present: soft, normal bowel sounds. Absent: distended, tenderness, guarding, rebound, rigid Left Knee exam: Present: tenderness, ecchymosis, effusion, pain/laxity with valgus, pain/laxity with varus, full knee extension. Absent: abrasion, laceration, deformity, crepitus, dislocation, erythema Gait: observed and limited by pain (walks with own cane) Neurological exam: Present: alert, oriented X3, CN II-XII intact Psychiatric exam: Present: normal affect, normal mood Skin exam: Present: warm, dry, intact, normal color. Absent: rash <Ney Penaloza - Last Filed: 06/18/20 08:39> Course Vital Signs 06/18/20 06/18/20 06:44 09:41 Temperature 99.2 F Pulse Rate 82 74 Respiratory 18 18 Rate Blood Pressure 167/76 147/71 O2 Sat by Pulse 96 96 Oximetry Medical Decision Making - Radiology Data Radiology results: report reviewed, image reviewed <Ney Penaloza - Last Filed: 06/18/20 08:39> <Hillary Blair - Last Filed: 06/24/20 23:53> - Medical Decision Making X-ray shows arthritis, with small to moderate effusion. No risk for DVT with negative Homans sign. Patient able to ambulate with cane. Will Gilberto wrap and have pt Follow up with orthopedics in one week. Tylenol 650 mg every 6 hours for pain, rest ice and elevate at home (Ney Penaloza) I was available for consultation in the emergency department. The history and physical exam were done by the midlevel provider. I was consulted for this patients care. I reviewed the case with the midlevel provider and based on their presentation of the patient, I agree with the assessment, medical decision making and plan of care as documented. Chart was dictated using [employer] dictation software. Attempts were made to correct any dictation errors however some typographical errors may persist. (Hillary Blair) - Radiology Data arthritis with small to moderate effusion (Ney Penaloza) Disposition Is patient prescribed a controlled substance at d/c from ED?: No Time of Disposition: 08:48 <Ney Penaloza - Last Filed: 06/18/20 08:39> <Hillary Blair - Last Filed: 06/24/20 23:53> Clinical Impression: Knee pain, left Disposition: HOME SELF-CARE Condition: Good Additional Instructions: rest, ice, and elevate left knee, wear Gilberto wrap and use your cane when walking. Take Tylenol 650 mg every 6 hours as needed for pain. Follow-up with orthopedics in 1 week Referrals: Zainab Zuleta DO [Primary Care Provider] - 1-2 days Eleonora Hernandez DO [Doctor of Osteopathic Medicine] - 1-2 days
--- NOTE | 2020-06-18 07:32 | XR ---
EXAMINATION TYPE: XR knee complete LT DATE OF EXAM: 06/18/2020 COMPARISON: 04/30/2013 HISTORY: 70-year-old female with pain TECHNIQUE: 3 views FINDINGS: Patellofemoral compartment and medial compartment degenerative spurring. Meniscal chondrocalcinosis i s noted. Small to moderate knee joint effusion. Extensor mechanism is intact. Osteopenia. No acute fr acture, subluxation, dislocation seen. Generalized soft tissue swelling. IMPRESSION: Patellofemoral compartment and medial compartment osteoarthrosis, at least moderate in degree. There is also a small to moderate joint effusion. Given meniscal chondrocalcinosis, consider CPPD arthropat hy as a possibility. No acute osseous abnormality seen.
[2020-06-18 09:42] VITALS: BP 147/71; PULSE 74
== END 2020-06-18 09:42 | disposition home or self-care (01) ==
LOC: EC 06:40
DX: M25.562 Pain in left knee (principal); M17.12 Unilateral primary osteoarthritis, left knee; S80.02XA Contusion of left knee, initial encounter; I10 Essential (primary) hypertension; J45.909 Unspecified asthma, uncomplicated; E11.9 Type 2 diabetes mellitus without complications; E78.00 Pure hypercholesterolemia, unspecified; F41.9 Anxiety disorder, unspecified; Z79.51 Long term (current) use of inhaled steroids; Z79.899 Other long term (current) drug therapy; Z79.4 Long term (current) use of insulin; Z88.0 Allergy status to penicillin; Z88.2 Allergy status to sulfonamides; Z88.1 Allergy status to other antibiotic agents; X58.XXXA Exposure to other specified factors, initial encounter
CPT/HCPCS: 99283

== ENCOUNTER → 2024-05-02 | Outpatient (CLI) | payer MEDICARE ==
[2024-05-02 09:07] LABS: African American GFR (CKD) 33 (>60 ml/min/1.73 sqM); Blood Urea Nitrogen 33 mg/dL (7-17); Non-African American GFR(CKD) 29 (>60 ml/min/1.73 sqM)
--- NOTE | 2024-05-02 10:43 | CT ---
EXAMINATION TYPE: CT abdomen pelvis wo con DATE OF EXAM: 05/02/2024 HISTORY: NAVEL AND LEFT LOWER QUADRANT PAIN CT DLP: 2715.1 mGycm. Automated Exposure Control for Dose Reduction was Utilized. TECHNIQUE: CT scan of the abdomen and pelvis is performed without oral or IV contrast. COMPARISON: CT urogram March 15, 2018 FINDINGS: Within the limitations of a non-contrast study, the following observations are made. LUNG BASES: No significant abnormality is appreciated. LIVER/GB: Cholecystectomy clips are redemonstrated. Liver has slightly irregular peripheral contour r aising concern for underlying cirrhosis. No biliary dilatation. No ascites. Correlate clinically. PANCREAS: No significant abnormality is seen. SPLEEN: No significant abnormality is seen. 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 KIDNEYS: Cortical thinning bilaterally is seen. No renal calculi are seen. No hydronephrosis is noted . BOWEL: Oral contrast reaches the level of the transverse colon. There is no abnormal small or large b owel dilatation. Mild the moderate wall thickening of the left colon into the sigmoid colon and rectu m is noted. GENITAL ORGANS: Anteverted uterus. Tiny fundal calcification axial image 72 could reflect small fibro id. LYMPH NODES: No greater than 1cm abdominal or pelvic lymph nodes are appreciated. OSSEOUS STRUCTURES: Multilevel vacuum disc phenomenon along with spurring and disc space narrowing in the thoracolumbar spine is present. OTHER: Moderate diffuse subcutaneous edema over the anterior wall of the lower abdomen and pelvis is seen. There is some skin thickening inferiorly noted. Small vessel arterial vascular calcification alan ggesting long-standing chronic medical renal disease is noted. IMPRESSION: 1. No acute findings definitively seen to account for patient's symptoms. 2. There is moderate anterior subcutaneous edema or soft tissue anasarca noted. 3. Possible uncomplicated mild distal colitis versus product of poor distention, correlate clinically . [facility], , 05/02/2024 10:41 AM
== END | disposition home or self-care (01) ==
LOC: RADCTMAIN 08:21
PROVIDERS: ATTEND Family Medicine
DX: R10.32 Left lower quadrant pain (principal)
CPT/HCPCS: 74176; 82565; 84520